=== PATIENT | male | born 1975 | race Caucasian/White ===

== ENCOUNTER 2017-01-28 13:16 | Emergency (ER) | payer OTHER ==
[~2017-01-28] VITALS: Ht 180.3 cm; Wt 102.1 kg
--- NOTE | 2017-01-28 14:15 | PHYS DOC ---
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 Patient states that after searching SL 800 tattoo needle and while trying to place it in a secure container he accidentally stuck himself in the distal left index finger. 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 Is concerned of possible HIV or hepatitis exposure. Appropriate labs will be drawn and I will provide the patient information regarding postexposure prophylaxis. He states that he was wearing gloves however after being stuck and removing the glove immediately he did see a drop of blood and he irrigated and washed the finger aggressively for an extended period of time at the corrections office before coming for evaluation. Onset: this afternoon Severity: mild Pain/Injury Location: left 2nd finger Method of Injury: other Modifying Factors: improves with other Allergies: Coded Allergies: No Known Drug Allergies (Unverified , 05/20/16) Past Medical History Medical History: other (hypothyroid) Surgical History: cholecystectomy Social History Smoker: non-smoker Alcohol: none Drugs: none Review of Systems Constitutional: denies chills, denies diaphoresis, denies fever Respiratory: denies cough, denies shortness of breath Cardiovascular: denies chest pain, denies palpitations Gastrointestinal: denies diarrhea, denies nausea, denies vomiting Musculoskeletal: denies back pain, denies joint pain, denies neck pain Skin: see HPI Physical Exam General Appearance: WD/WN, no apparent distress Neck: non-tender, supple Cardiovascular/Respiratory: normal peripheral pulses, no respiratory distress Hand: normal inspection (at the distal aspect of the left index finger there is a pin point puncture wound no other abnormal findings.) Neurologic/Tendon: normal sensation, normal motor functions, normal tendon functions, responds to pain, no evidence tendon injury Psychiatric: alert, oriented x 3 Skin: warm/dry (distal left index finger as above) Orders, Labs, Meds Labs were drawn patient will follow up with his employer for results and further testing. After thorough discussion of postexposure prophylaxis the patient does defer for now he wishes to wait until the inmate is tested before deciding to be treated. He states that his mother has hepatitis C he doesn't want that treatment and has been made aware by others of the adverse effects associated with postexposure prophylaxis which she wishes to avoid at this time. Departure Time of Disposition: 14:13 Disposition: 01 HOME, SELF-CARE Diagnosis: body fluid exposure, tetanus prophylaxis Condition: GOOD Patient Instructions: Body Fluid Exposure, VIS, Tetanus, Diphtheria, and Pertussis (Tdap) - CDC Additional Instructions: OK to return to work. Follow up with your employer regarding your results and further interventions if necessary. Return to ED with new or changing symptoms. LUCY MUÑOZ DO Jan 28, 2017 14:15
[2017-01-28] MEDS ORDERED: DIPHTH,PERTUSS(ACELL),TET TOX 0.5 ML DISP.SYRIN. VAX IM ONE (14:20)
[2017-01-28 16:02] VITALS: BP 128/76
[2017-01-29 17:09] LABS: HCV ANTIBODY <0.1 s/co ratio (0.0-0.9); HEP A IGM ABDY Negative (Negative)
== END 2017-01-28 14:26 | disposition home or self-care (01) ==
LOC: ER 13:16
DX: Z77.21 Contact with and (suspected) exposure to potentially hazardous body fluids (principal); Z23 Encounter for immunization; S69.82XA Other specified injuries of left wrist, hand and finger(s), initial encounter; E03.9 Hypothyroidism, unspecified; W46.0XXA Contact with hypodermic needle, initial encounter; Y93.89 Activity, other specified; Y99.0 Civilian activity done for income or pay; Y92.89 Other specified places as the place of occurrence of the external cause
CPT/HCPCS: 36415; 80074; 86701; 86702; 86703; 87535; 90471; 90715; 99284-25

== ENCOUNTER 2018-12-17 09:39 | Observation (INO) | payer BC ==
[~2018-12-17] VITALS: Ht 180.3 cm; Wt 103.0 kg
[2018-12-17 09:57] VITALS: BP 156/64
[2018-12-17] MEDS ORDERED: ACETAMINOPHEN 500 MG TABLET PO PRN (10:00)
[2018-12-17] MEDS ORDERED: ONDANSETRON PF 4 MG/2 ML VIAL. IV PRN (10:00)
[2018-12-17] MEDS: IV NORMAL SALINE 1,000ML 1,000 ML IV SCH ×3 (10:07→19:58)
[2018-12-17 10:45] LABS: BASO % 0 % (0-3); EOS # 0.1 x10^3/uL (0.0-0.7); EOS % 1 % (0-3); HEMATOCRIT 48.8 % (39.0-53.0); HEMOGLOBIN 16.6 g/dL (13.0-17.5); LYMPH # 0.9 x10^3/uL (1.0-4.8); LYMPH % 9 % (24-48); MEAN CORPUSCULAR HEMOGLOBIN 31 pg (25-35); MEAN CORPUSCULAR HGB CONC 34 g/dL (31-37); MEAN CORPUSCULAR VOLUME 91 fL (79-100); MONO # 0.5 x10^3/uL (0.0-1.1); MONO % 5 % (0-9); NEUT # 8.9 x10^3uL (1.8-7.7); NEUT % 85 % (31-73); PLATELET COUNT 196 x10^3/uL (140-400); RED BLOOD COUNT 5.36 x10^6/uL (4.30-5.70); RED CELL DISTRIBUTION WIDTH 13.2 % (11.5-14.5); WHITE BLOOD COUNT 10.4 x10^3/uL (4.0-11.0)
--- NOTE | 2018-12-17 10:48 | RAD ---
PQRS Compliance Statement: One or more of the following individualized dose reduction techniques were utilized for this examination: 1. Automated exposure control 2. Adjustment of the mA and/or kV according to patient size 3. Use of iterative reconstruction technique CT abdomen/pelvis without contrast 12/17/2018 9:50 AM INDICATION: Left flank pain with onset today. COMPARISON: None available TECHNIQUE: Multiple axial CT images of the abdomen and pelvis were obtained without intravenous contrast. Coronal and sagittal reformats are provided. FINDINGS: Centrally calcified pulmonary nodules in the left lower lobe measure up to 11 mm suggestive of partly calcified granulomas. Otherwise, lung bases are clear. Heart size is within normal limits. There is small hiatal hernia. Evaluation of solid abdominal viscera is limited by lack of intravenous contrast. Hypoattenuation of the hepatic parenchyma suggestive of hepatic steatosis. No suspicious hepatic lesions are identified. Gallbladder is surgically absent. Spleen, bilateral adrenal glands and pancreas are normal in appearance. The abdominal aorta is normal in course and caliber. There are no pathologically enlarged lymph nodes in the abdomen and pelvis. There is no abdominal free fluid. There is no free intraperitoneal air. There is a retroaortic left renal vein. Small and large bowel are normal in caliber. There is no evidence for bowel obstruction. There are no pericolonic inflammatory changes. A normal, nondilated appendix is visualized without adjacent inflammatory changes. There is mild left perinephric and periureteral fat stranding. Mild dilatation of left ureter without cici hydronephrosis. 4 mm calculus is identified within the dependent portion of the urinary bladder. Correlate with resolution of patient's symptoms. No additional renal calculi are identified. Urinary bladder is otherwise within normal limits given degree of distention. Prostate and seminal vesicles appear normal. No suspicious osseous normality is identified. IMPRESSION: There is a 4 mm calculus in the dependent portion of the urinary bladder which may reflect a recently passed left ureteral calculus. There is persistent mild fat stranding in the left periureteral and perinephric space. Mild distention of the left ureter without hydronephrosis. Electronically signed by: Radha Mccann MD (12/17/2018 10:45 AM) [id number]
[2018-12-17 10:56] LABS: ALBUMIN 3.8 g/dL (3.4-5.0); ALBUMIN/GLOBULIN RATIO 1.1 (1.0-1.7); CREATININE 1.4 mg/dL (0.7-1.3); GFR 55.1; POTASSIUM 4.5 mmol/L (3.5-5.1); TOTAL BILIRUBIN 0.4 mg/dL (0.2-1.0); TOTAL PROTEIN 7.2 g/dL (6.4-8.2)
[2018-12-17] MEDS ORDERED: LEVO200T5 PO (11:16)
[2018-12-17 13:08] LABS: BACTERIA,URINE 0 /HPF (0-FEW); BILIRUBIN,URINE NEG (NEG); CLARITY,URINE CLEAR; COLOR,URINE YELLOW; GLUCOSE,URINE NEG (NEG); NITRITE,URINE NEG (NEG); SQUAMOUS EPITHELIAL CELL,UR OCC /LPF; UROBILINOGEN,URINE 0.2 mg/dL (0.2 mg/dL); WBC,URINE 0 /HPF (0-4)
[2018-12-17 14:31] VITALS: BP 127/69
[2018-12-17 18:25] VITALS: BP 127/78
[2018-12-17] MEDS ORDERED: FAMO-63 PO (20:05)
[2018-12-17] MEDS: FAMOTIDINE 20 MG TABLET PO SCH (21:00)
[2018-12-17 23:35] VITALS: BP 133/79
[2018-12-18] MEDS: IV NORMAL SALINE 1,000ML 1,000 ML IV SCH ×2 (01:03→05:45)
[2018-12-18] MEDS ORDERED: LEVOTHYROXINE 100 MCG TABLET PO SCH (06:00)
[2018-12-18 06:09] VITALS: BP 131/79
[2018-12-18 06:34] LABS: BASO % 0 % (0-3); EOS # 0.3 x10^3/uL (0.0-0.7); EOS % 5 % (0-3); HEMATOCRIT 45.3 % (39.0-53.0); HEMOGLOBIN 15.3 g/dL (13.0-17.5); LYMPH # 1.9 x10^3/uL (1.0-4.8); LYMPH % 30 % (24-48); MEAN CORPUSCULAR HEMOGLOBIN 31 pg (25-35); MEAN CORPUSCULAR HGB CONC 34 g/dL (31-37); MEAN CORPUSCULAR VOLUME 92 fL (79-100); MONO # 0.6 x10^3/uL (0.0-1.1); MONO % 9 % (0-9); NEUT # 3.6 x10^3uL (1.8-7.7); NEUT % 56 % (31-73); PLATELET COUNT 185 x10^3/uL (140-400); RED BLOOD COUNT 4.93 x10^6/uL (4.30-5.70); RED CELL DISTRIBUTION WIDTH 13.2 % (11.5-14.5); WHITE BLOOD COUNT 6.5 x10^3/uL (4.0-11.0)
[2018-12-18 06:44] LABS: CALCIUM 8.4 mg/dL (8.5-10.1); CREATININE 1.2 mg/dL (0.7-1.3); GFR 65.8; POTASSIUM 4.3 mmol/L (3.5-5.1)
[2018-12-18] MEDS: FAMOTIDINE 20 MG TABLET PO SCH (08:50)
[2018-12-18] MEDS ORDERED: LEVO500T59 PO (08:52)
== END 2018-12-18 09:40 | disposition home or self-care (01) ==
LOC: INTOOBSV 09:41 → 1 SOUTH 09:41 → EEVIPCON 09:41
PROVIDERS: ADMIT Family Medicine; ATTEND Family Medicine
DX: R10.12 Left upper quadrant pain (principal); E03.9 Hypothyroidism, unspecified; R10.32 Left lower quadrant pain
CPT/HCPCS: 36415; 74176; 80048; 80053; 81001; 85025; 87086; 96365; 96375; 96376; G0378; G0379; J0696; J2405; J3010; J7030

== ENCOUNTER 2019-11-14 18:40 | Emergency (ER) | payer BC ==
[~2019-11-14] VITALS: Ht 180.3 cm; Wt 108.6 kg
[~2019-11-14 18:40] MED LIST: FAMO-63 PO; LEVO200T5 PO; LEVO500T59 PO
[2019-11-14 18:51] VITALS: BP 160/92
[2019-11-14] MEDS ORDERED: DIPH,PERTUSS(ACELL),TET VAC/PF 0.5 ML SYRINGE. VAX IM ONE ×2 (18:58→19:30)
[2019-11-14] MEDS ORDERED: LIDOCAINE 1% Multi-Dose 20 ML VIAL. INJ ONE (19:00)
[2019-11-14] MEDS ORDERED: AMOX1TAB61 PO (19:37)
--- NOTE | 2019-11-14 19:37 | RAD ---
Exam: Left hand 3 views INDICATION: Laceration TECHNIQUE: Frontal, lateral and oblique views of the left hand Comparisons: None FINDINGS: Overlying bandage material limits the evaluation at the distal fourth digit. Bone mineralization is normal. No acute fractures identified. Soft tissues are unremarkable. Joint spaces are well-maintained. IMPRESSION: No acute fracture or retained radiopaque foreign body identified. Electronically signed by: Sandra Bustillo MD (11/14/2019 7:34 PM) [id number]
--- NOTE | 2019-11-14 20:05 | PHYS DOC ---
Past History Past Medical History: Hypothyroid Past Surgical History: Cholecystectomy, Other Additional Past Surgical Histo: SKULL SX Alcohol Use: Occasionally Drug Use: None Adult General Chief Complaint Chief Complaint: FINGER INJURY HPI HPI Patient is a 44 year old male who presents with injury to the left hand. Patient was carrying some kind of saw and tripped cutting his fourth and fifth fingers. He denies any other injuries. He was able to control the bleeding while driving here. He denies any change of feeling in his fingers. Is got full range of motion of his hand. Unknown last tetanus Review of Systems Review of Systems General: Denies fever, chills, sweats, fatigue Eyes: Denies drainage, blurred vision, eye redness HENT: Denies rhinorrhea, sore throat, earache Respiratory: Denies cough, shortness of breath, wheezing Cardiac: Denies edema, palpitations, chest pain GI: Denies abdominal pain, Nausea, vomiting MSK: Denies back pain, neck pain Skin: Denies rash, jaundice Neuro: Denies headache, dizziness Psychiatric: Denies SI/HI Current Medications Current Medications Current Medications Medications (Trade) Dose Ordered Sig/Marky Start Time Stop Time Status Last Admin Dose Admin Diphtheria/ Pertussis/Tetanus Vacc (ADACEL TDap SYRINGE) 0.5 ml ONCE ONCE 11/14/19 19:30 11/14/19 19:31 DC 11/14/19 19:27 0.5 ML Lidocaine HCl 20 ml 1X ONCE 11/14/19 19:00 11/14/19 19:01 DC 11/14/19 19:18 20 ML Allergies Allergies Allergies Coded Allergies Type Severity Reaction Last Updated Verified morphine Allergy Severe Anaphylaxis 12/17/18 Yes Sulfa (Sulfonamide Antibiotics) Allergy Unknown 12/17/18 Yes Physical Exam Physical Exam General: Awake, alert, NAD. Well Nourished, well hydrated. Cooperative HEENT: Atraumatic, EOMI, PERRL, airway patent, moist oral mucosa Neck: Supple, trachea midline Respiratory: CTA bilaterally, normal effort, no wheezing/crackles CV: RRR, no murmur, cap refill <2 GI: Soft, nondistended, nontender, no masses MSK: full range of motion, normal sensation Skin: Warm, dry. L 4th finger: fingertip laceration through the finger including lateral nailbed with minimal bleeding. L 5th finger: laceration to tip of finger with multiple skin flaps including lateral nailbed and moderate bleeding Neuro: A&O x3, speech NL, sensory and motor grossly intact, no focal deficits Psych: Normal affect, normal mood, not suicidal or homicidal Current Patient Data Vital Signs Vital Signs Date Time Temp Pulse Resp B/P (MAP) Pulse Ox O2 Delivery O2 Flow Rate FiO2 11/14/19 18:51 98.2 62 18 160/92 (114) 95 Room Air EKG EKG [] Radiology/Procedures Radiology/Procedures [] Course & Med Decision Making Course & Med Decision Making Pertinent Labs and Imaging studies reviewed. (See chart for details) Patient is a 44 year old male who presents with lacerations from saw. Fingers were cleaned with copious amount of normal saline. Xray negative for fracture. Wounds were repaired with difficulty. Fourth finger wound was repaired with sutures and bleeding was controlled. Fifth digit wound is complicated and sutures were place where able. Patient will be placed on antibiotics and will follow up with orthopedics. Patient's test results and vitals while in the ED were fully reviewed and discussed with the patient. Patient is stable and at this time does not need admission to the hospital. We have discussed strict return precautions and the importance of following up with their Primary Care Physician. Patient stated understanding and was given an opportunity to ask any questions. Patient is in agreement with plan. Dragon Disclaimer Dragon Disclaimer This electronic medical record was generated, in whole or in part, using a voice recognition dictation system. Departure Departure: Impression: Primary Impression: Laceration of finger nail bed Disposition: HOME/RESIDENCE PRIOR TO ADM Condition: STABLE Referrals: ELLA GALLEGO MD (PCP) JOSE MARTIN CRUZ II, MD Patient Instructions: Fingertip Laceration, Stitches, [place] or Skin Adhesive Strips, [id number] Scripts Amoxicillin/Potassium Clav (AUGMENTIN 875-125 TABLET) 1 Each Tablet 1 TAB PO BID for finger laceration for 7 Days, #14 TAB 0 Refills Prov: JAIME OLIVEIRA MD 11/14/19 Justification of Admission: Justification of Admission: Justification of Admission Dx: No JAIME OLIVEIRA MD Nov 14, 2019 20:05
== END 2019-11-14 21:30 | disposition home or self-care (01) ==
LOC: ER 18:40
DX: S61.315A Laceration without foreign body of left ring finger with damage to nail, initial encounter (principal); S61.317A Laceration without foreign body of left little finger with damage to nail, initial encounter; W26.8XXA Contact with other sharp object(s), not elsewhere classified, initial encounter; Y93.89 Activity, other specified; Y92.89 Other specified places as the place of occurrence of the external cause; Y99.8 Other external cause status
CPT/HCPCS: 11760; 73130; 90471; 90715; 99283; 99285

== ENCOUNTER 2019-11-22 20:48 | Emergency (ER) | payer BC ==
[~2019-11-22] VITALS: Ht 180.3 cm; Wt 95.1 kg
[~2019-11-22 20:48] MED LIST changes: +AMOX1TAB61 PO
--- NOTE | 2019-11-22 20:52 | PHYS DOC ---
Past History Past Medical History: Hypothyroid Past Surgical History: Cholecystectomy, Other Additional Past Surgical Histo: SKULL SX Alcohol Use: Occasionally Drug Use: None General Adult HPI: HPI: "..This fernanda started yesterday.. no reason.. some chest tightness... skipping heart beats..more this afternoon....".." I have been having these episodes for the past 3 months. But tonight it lasted about 3 hours so I thought I did come in and get checked out..." Patient is a 44 year old male who presents with above hx and complaints palpitations and chest tightness. Patient denies any previous history of cardiac disorders prior to 3 months ago. Symptoms have been off and on the past three months. Did get cardiac US this week ordered by Dr. Gallego. No result currently available. Pt. came in tonight because tighness. and palpation has lasted 3 hrs. . Patient has not indulged in heavy alcohol or caffeine usage. No change in baseline home meds. No history of cardiac disease. No history of early onset of cardiac disease in mother or father. Patient normally follows with Dr. Gallego..Patient does not smoke. Patient does not use illicit drugs. No recent travel. No history of trauma. No history of specific ill contacts. No history immunosuppression. Discomfort is described as a tightness in his center of his chest. No specific radiation at this time. Review of Systems: Review of Systems: Constitutional: Denies fever or chills Eyes: Denies change in visual acuity HENT: Denies nasal congestion or sore throat Respiratory: Denies cough or shortness of breath Cardiovascular: Complailnts of chest pain and palpitations GI: Denies abdominal pain, nausea, vomiting, bloody stools or diarrhea : Denies dysuria Musculoskeletal: Denies back pain or joint pain Integument: Denies rash Neurologic: Denies headache, focal weakness or sensory changes Endocrine: Denies polyuria or polydipsia Lymphatic: Denies swollen glands Psychiatric: Denies depression or anxiety Heart Score: HEART Score for Chest Pain: HEART Score for Chest Pain Response (Comments) Value History Slighlty/Non-Suspicious 0 ECG Nonspecific Repolarizatio 1 Age >45 - < 65 1 Risk Factors 1 or 2 Risk Factors 1 Troponin < Normal Limit 0 Total 3 Risk Factors: Risk Factors: DM, Current or recent (<one month) smoker, HTN, HLP, family history of CAD, obesity. Risk Scores: Score 0 - 3: 2.5% MACE over next 6 weeks - Discharge Home Score 4 - 6: 20.3% MACE over next 6 weeks - Admit for Clinical Observation Score 7 - 10: 72.7% MACE over next 6 weeks - Early Invasive Strategies Family History: Family History: Noncontributory Current Medications: Current Meds: See nursing for home meds Allergies: Allergies: Allergies Coded Allergies Type Severity Reaction Last Updated Verified morphine Allergy Severe Anaphylaxis 12/17/18 Yes Sulfa (Sulfonamide Antibiotics) Allergy Unknown 12/17/18 Yes Physical Exam: PE: Constitutional: Well developed, well nourished, mild distress, non-toxic appearance. [] HENT: Normocephalic, atraumatic, bilateral external ears normal, oropharynx moist, no oral exudates, nose normal. [] Eyes: PERRLA, EOMI, conjunctiva normal, no discharge. Glasses Neck: Normal range of motion, no tenderness, supple, no stridor. [] Cardiovascular:Heart rate regular rhythm, no murmur [] Lungs & Thorax: Bilateral breath sounds equal apex on auscultation [] Abdomen: Bowel sounds normal, soft, no tenderness, no masses, no pulsatile masses. [] Skin: Warm, mild diaphoresis, no erythema, no rash. [] Tattoos Back: No tenderness, no CVA tenderness. [] Extremities: No tenderness, no cyanosis, no clubbing, ROM intact, no edema. [] No cording appreciated Neurologic: Alert and oriented X 3, normal motor function, normal sensory function, no focal deficits noted. [] Psychologic: Affect anxious, judgement normal, mood normal. [] EKG: EKG: My interpretation EKG shows a sinus rhythm at 79 bpm. There is some variation due to respiratory effort. There is some baseline artifact or interference which appears to be electrical. But no findings of acute STEMI with contralateral changes. [] Time was 2104 hrs. My interpretation of second EKG shows a sinus rhythm at 65 bpm. No findings of acute STEMI with contralateral changes. Time was 2247 hrs. Radiology/Procedures: Radiology/Procedures: [][address] [address] IMAGING REPORT Signed PATIENT: ROSY SULTANA ACCOUNT: [id number] : 1975 LOCATION: ER AGE: 44 SEX: M EXAM STATUS: REG ER ORD. PHYSICIAN: YESENIA PURVIS MD REASON: palpitation PROCEDURE: CHEST PA & LATERAL EXAM: CHEST PA LATERAL INDICATION: Reason: palpitation / Spl. Instructions: / History: . TECHNIQUE: PA and lateral views COMPARISON: None FINDINGS: The heart size is normal. The great vessels appear unremarkable. There is no hilar or mediastinal mass. The lungs are clear. There is no pleural effusion or pneumothorax. There are no significant osseous abnormalities. IMPRESSION: No active cardiopulmonary disease. Electronically signed by: Donnie Milian MD (11/22/2019 9:54 PM) [facility] [place] DICTATED AND SIGNED BY: DONNIE MILIAN MD DATE: 11/22/192153 CC: ELLA GALLEGO MD; YESENIA PURVIS MD ~ Course & Med Decision Making: Course & Med Decision Making Pertinent Labs and Imaging studies reviewed. (See chart for details) Pt. at 2242 advised he wants to be discharged. States his symptoms are over.. Does not want admission or wait for further testing. Pt. exhibits UCAR capacity. Risk and Benefits discussed. Pt. does agree to at least one more EKG. Pt. encouraged to keep follow up. Take a daily 1/2 aspirin. Will give one dose of Lovenox. Advised pt. return at anytime to complete his work up or cardiac observation. Begged pt. to reconsider and at least stay until we could complete a 4 hr observation and repeat trop. test. Pt. refused. 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 Gallego Impression: 1. Chest Pain 2. Hypertension 3. Complaints of palpitations [] Dragon Disclaimer: Dragon Disclaimer: This electronic medical record was generated, in whole or in part, using a voice recognition dictation system. Departure Departure: Disposition: HOME/RESIDENCE PRIOR TO ADM Condition: STABLE Referrals: ELLA GALLEGO MD (PCP) Justification of Admission: Justification of Admission: Justification of Admission Dx: N/A Dragon Disclaimer This chart was dictated in whole or in part using Voice Recognition software in a busy, high-work load, and often noisy Emergency Department environment. It may contain unintended and wholly unrecognized errors or omissions. Dragon Disclaimer This chart was dictated in whole or in part using Voice Recognition software in a busy, high-work load, and often noisy Emergency Department environment. It may contain unintended and wholly unrecognized errors or omissions. YESENIA PURVIS MD Nov 22, 2019 20:52
[2019-11-22] MEDS ORDERED: IV RINGERS SOLUTION,LACTATED 1,000 ML IV SCH (21:00)
[2019-11-22] MEDS ORDERED: ASPIRIN CHEWABLE 81 MG TABLET. PO ONE (21:30)
[2019-11-22 21:44] LABS: BASO # 0.1 x10^3/uL (0.0-0.2); BASO % 1 % (0-3); EOS # 0.4 x10^3/uL (0.0-0.7); EOS % 4 % (0-3); HEMATOCRIT 49.1 % (39.0-53.0); HEMOGLOBIN 16.5 g/dL (13.0-17.5); LYMPH # 2.6 x10^3/uL (1.0-4.8); LYMPH % 31 % (24-48); MEAN CORPUSCULAR HEMOGLOBIN 31 pg (25-35); MEAN CORPUSCULAR HGB CONC 34 g/dL (31-37); MEAN CORPUSCULAR VOLUME 91 fL (79-100); MONO # 0.8 x10^3/uL (0.0-1.1); MONO % 10 % (0-9); NEUT # 4.6 x10^3uL (1.8-7.7); NEUT % 54 % (31-73); PLATELET COUNT 197 x10^3/uL (140-400); RED BLOOD COUNT 5.38 x10^6/uL (4.30-5.70); RED CELL DISTRIBUTION WIDTH 12.8 % (11.5-14.5); WHITE BLOOD COUNT 8.4 x10^3/uL (4.0-11.0)
[2019-11-22 21:46] LABS: BARBITURATES NEG (NEG); BENZODIAZEPINES NEG (NEG); CANNABINOIDS NEG (NEG); COCAINE NEG (NEG); METHADONE NEG (NEG); OPIATES NEG (NEG); PHENCYCLIDINE NEG (NEG)
[2019-11-22 21:49] LABS: AMPHETAMINE/METHAMPHETAMINE NEG (NEG)
[2019-11-22 21:52] LABS: CALCIUM 8.7 mg/dL (8.5-10.1); CREATININE 1.6 mg/dL (0.7-1.3); POTASSIUM 3.8 mmol/L (3.5-5.1)
--- NOTE | 2019-11-22 21:57 | RAD ---
EXAM: CHEST PA LATERAL INDICATION: Reason: palpitation / Spl. Instructions: / History: . TECHNIQUE: PA and lateral views COMPARISON: None FINDINGS: The heart size is normal. The great vessels appear unremarkable. There is no hilar or mediastinal mass. The lungs are clear. There is no pleural effusion or pneumothorax. There are no significant osseous abnormalities. IMPRESSION: No active cardiopulmonary disease. Electronically signed by: Eriberto Milian MD (11/22/2019 9:54 PM) [facility] [place]
[2019-11-22 22:01] LABS: ALBUMIN 3.7 g/dL (3.4-5.0); DIRECT BILIRUBIN 0.1 mg/dL (0.0-0.2); MAGNESIUM 2.1 mg/dL (1.8-2.4); TOTAL BILIRUBIN 0.4 mg/dL (0.2-1.0); TOTAL PROTEIN 6.7 g/dL (6.4-8.2)
[2019-11-22 22:07] LABS: BACTERIA,URINE 0 /HPF (0-FEW); BILIRUBIN,URINE NEG (NEG); CLARITY,URINE CLEAR; COLOR,URINE YELLOW; GLUCOSE,URINE NEG (NEG); NITRITE,URINE NEG (NEG); RBC,URINE 0 /HPF (0-2); UROBILINOGEN,URINE 0.2 mg/dL (0.2 mg/dL); WBC,URINE OCC /HPF (0-4)
--- NOTE | 2019-11-22 22:55 | EKG ---
[address] [address] Test Date: 2019-11-22 Test Time: 22:47:45 Pat Name: ROSY SULTANA Department: Room: Gender: M Log Haul Operator: : 1975 Requested By: YESENIA PURVIS Order Number: [id number] Reading MD: Measurements Intervals [place] Rate: 65 P: 40 NH: 176 QRS: 35 QRSD: 88 T: 14 QT: 360 QTc: 375 Interpretive Statements SINUS RHYTHM OTHERWISE NORMAL ECG RI6.02 No previous ECG available for comparison
--- NOTE | 2019-11-22 22:55 | EKG ---
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
[2019-11-22 23:00] VITALS: BP 162/72
[2019-11-22] MEDS ORDERED: ENOXAPARIN ** NOTE DOSE ** SYRINGE SQ ONE (23:00)
[2019-11-23 22:15] LABS: THYROID STIM HORMONE (TSH) 3.356 uIU/mL (0.358-3.740)
== END 2019-11-22 23:00 | disposition home or self-care (01) ==
LOC: ER 20:48
DX: R07.89 Other chest pain (principal); I10 Essential (primary) hypertension; R00.2 Palpitations; E03.9 Hypothyroidism, unspecified; Z88.5 Allergy status to narcotic agent; Z88.2 Allergy status to sulfonamides
CPT/HCPCS: 36415; 71046; 80048; 80061; 80076; 80307; 81001; 82550; 83690; 83735; 83880; 84443; 84484; 85025; 85379; 85610; 85730; 93005; 96360; 96361; 96372; 99285; J1650; J7120

== ENCOUNTER 2019-12-21 13:14 | Observation (INO) | payer BC ==
[~2019-12-21] VITALS: Ht 180.3 cm; Wt 104.9 kg
--- NOTE | 2019-12-21 13:44 | EKG ---
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
--- NOTE | 2019-12-21 13:59 | PHYS DOC ---
Past History Past Medical History: Hypothyroid Additional Past Medical Histor: low testosterone Past Surgical History: Cholecystectomy Additional Past Surgical Histo: SKULL SX Alcohol Use: Occasionally Drug Use: None General Adult EDM: Chief Complaint: RAPID HEART RATE HPI: HPI: Patient is a 43-year-old male who presented to ER today for evaluation rapid heart rate, having trouble breathing with exertion. Patient denies any chest pain. Patient says symptoms started last night and went away after 1 hour. Patient says the symptoms started again this morning at 7 AM, symptom with the palpitation and irregular heartbeat will come and go. Patient has history of hypothyroidism, he is on levothyroxine. Patient denies any history of heart problem. Patient denies using illicit drug . Patient denies any cough, no fever, no recent travel or operation. Patient had this problem off and on for 3 months now. Patient was evaluated here about 30 days ago for the same problem, however when he was in the ER he had normal sinus rhythm and work-up in ER was normal. Patient did not want to stay in the hospital so he was discharged home. Patient denies any history of recent travel or operation. Patient did not follow-up with cardiology. Review of Systems: Review of Systems: Constitutional: Denies fever or chills Eyes: Denies change in visual acuity HENT: Denies nasal congestion or sore throat Respiratory: Denies cough, positive for shortness of air. Cardiovascular: Denies chest pain or edema . Positive for heart palpitation GI: Denies abdominal pain, nausea, vomiting, bloody stools or diarrhea : Denies dysuria Musculoskeletal: Denies back pain or joint pain Integument: Denies rash Neurologic: Denies headache, focal weakness or sensory changes Endocrine: Denies polyuria or polydipsia Lymphatic: Denies swollen glands Psychiatric: Denies depression or anxiety Heart Score: Risk Factors: Risk Factors: DM, Current or recent (<one month) smoker, HTN, HLP, family history of CAD, obesity. Risk Scores: Score 0 - 3: 2.5% MACE over next 6 weeks - Discharge Home Score 4 - 6: 20.3% MACE over next 6 weeks - Admit for Clinical Observation Score 7 - 10: 72.7% MACE over next 6 weeks - Early Invasive Strategies Allergies: Allergies: Allergies Coded Allergies Type Severity Reaction Last Updated Verified morphine Allergy Severe Anaphylaxis 12/17/18 Yes Sulfa (Sulfonamide Antibiotics) Allergy Intermediate 11/22/19 Yes Physical Exam: PE: Constitutional: Well developed, well nourished, no acute distress, non-toxic appearance. [] HENT: Normocephalic, atraumatic, bilateral external ears normal, oropharynx moist, no oral exudates, nose normal. [] Eyes: PERRLA, EOMI, conjunctiva normal, no discharge. [] Neck: Normal range of motion, no tenderness, supple, no stridor. [] Cardiovascular:Heart rate regular rhythm, no murmur [] Lungs & Thorax: Bilateral breath sounds clear to auscultation [] Abdomen: Bowel sounds normal, soft, no tenderness, no masses, no pulsatile masses. [] Skin: Warm, dry, no erythema, no rash. [] Back: No tenderness, no CVA tenderness. [] Extremities: No tenderness, no cyanosis, no clubbing, ROM intact, no edema. [] Neurologic: Alert and oriented X 3, normal motor function, normal sensory function, no focal deficits noted. [] Psychologic: Affect normal, judgement normal, mood normal. [] Current Patient Data: Labs: Laboratory Tests Test 12/21/19 13:25 12/21/19 13:35 Urine Collection Type Unknown Urine Color Straw Urine Clarity Clear Urine pH 6.5 Urine Specific [place] <=1.005 Urine Protein Neg Urine Glucose (UA) Neg mg/dL Urine Ketones (Stick) Neg mg/dL Urine Blood Neg Urine Nitrite Neg Urine Bilirubin Neg Urine Urobilinogen Dipstick 0.2 mg/dL Urine Leukocyte Esterase Neg Urine RBC 0 /HPF Urine WBC 0 /HPF Urine Bacteria 0 /HPF White Blood Count 6.2 x10^3/uL Red Blood Count 5.49 x10^6/uL Hemoglobin 17.1 g/dL Hematocrit 50.1 % Mean Corpuscular Volume 91 fL Mean Corpuscular Hemoglobin 31 pg Mean Corpuscular Hemoglobin Concent 34 g/dL Red Cell Distribution Width 13.1 % Platelet Count 194 x10^3/uL Neutrophils (%) (Auto) 63 % Lymphocytes (%) (Auto) 25 % Monocytes (%) (Auto) 8 % Eosinophils (%) (Auto) 3 % Basophils (%) (Auto) 1 % Neutrophils # (Auto) 3.9 x10^3uL Lymphocytes # (Auto) 1.5 x10^3/uL Monocytes # (Auto) 0.5 x10^3/uL Eosinophils # (Auto) 0.2 x10^3/uL Basophils # (Auto) 0.0 x10^3/uL Prothrombin Time 11.6 SEC Prothromb Time International Ratio 1.1 Activated Partial Thromboplast Time 25 SEC Sodium Level 139 mmol/L Potassium Level 3.7 mmol/L Chloride Level 104 mmol/L Carbon Dioxide Level 26 mmol/L Anion Gap 9 Blood Urea Nitrogen 13 mg/dL Creatinine 1.2 mg/dL Estimated GFR (Cockcroft-Gault) 65.5 BUN/Creatinine Ratio 11 Glucose Level 154 mg/dL Calcium Level 8.6 mg/dL Magnesium Level 2.3 mg/dL Total Bilirubin 0.7 mg/dL Aspartate Amino Transf (AST/SGOT) 39 U/L Alanine Aminotransferase (ALT/SGPT) 56 U/L Alkaline Phosphatase 64 U/L Troponin I Quantitative < 0.017 ng/mL XL-Rki-H-Type Natriuretic Peptide 15 pg/mL Total Protein 7.2 g/dL Albumin 3.9 g/dL Albumin/Globulin Ratio 1.2 Current Medications Medications (Trade) Dose Ordered Sig/Marky Route PRN Reason Start Time Stop Time Status Last Admin Dose Admin Ondansetron HCl (Zofran) 4 mg PRN Q4HRS PRN IVP NAUSEA/VOMITING 12/21/19 16:15 12/22/19 16:14 UNV Metoprolol Tartrate (Lopressor) 25 mg BID PO 12/21/19 21:00 UNV Aspirin (Aspirin Chewable) 324 mg 1X ONCE PO 12/21/19 16:15 12/21/19 16:16 UNV Vital Signs: Vital Signs Date Time Temp Pulse Resp B/P (MAP) Pulse Ox O2 Delivery O2 Flow Rate FiO2 12/21/19 13:27 98.3 148 18 137/77 (97) 96 Room Air EKG: EKG: EKG was done at 1320, was read by this physician at the same time, heart rate 149 beats per minute, atrial fibrillation with rapid ventricular response. No ST segment elevation. Normal QRS complex Radiology/Procedures: Radiology/Procedures: [][address] [address] IMAGING REPORT Signed PATIENT: ROSY SULTANA ACCOUNT: [id number] : 1975 LOCATION: ER AGE: 44 SEX: M EXAM STATUS: REG ER ORD. PHYSICIAN: ELLA GONZALEZ DO REASON: soa, heart palpitation PROCEDURE: PORTABLE CHEST 1V EXAM: CHEST 1 VIEW History: Shortness of breath, heart palpitations COMPARISON: 11/22/2019 TECHNIQUE: Single portable radiograph of the chest FINDINGS: The cardiac silhouette is unremarkable. The lungs are clear bilaterally. The costophrenic sulci are clear and well demarcated. IMPRESSION: No radiographic evidence of an acute cardiopulmonary process. Electronically signed by: Fco Sung MD (12/21/2019 2:44 PM) [id number] DICTATED AND SIGNED BY: FCO SUNG MD DATE: 12/21/19 1444 CC: ELLA GALLEGO MD; ELLA GONZALEZ DO ~ Course & Med Decision Making: Course & Med Decision Making Pertinent Labs and Imaging studies reviewed. (See chart for details) Patient is a 44-year-old male who was evaluated in the ER due to atrial fibrillation with RVR. Patient converted to normal sinus rhythm when an IV was placed by RN. Patient has been staying normal sinus rhythm since. He required no medication to convert his A. fib with RVR. Discussed with Karla cardiology EXPLOSION WELDER who recommended with patient on 25 mg of metoprolol tartrate p.o. twice daily, and aspirin daily. Admit patient for observation. Discussed with Dr. Gallego who agrees to admit the patient Dragon Disclaimer: Mireya Disclaimer: This electronic medical record was generated, in whole or in part, using a voice recognition dictation system. Departure Departure: Impression: Primary Impression: Transient atrial fibrillation Additional Impression: Atrial fibrillation with RVR Disposition: ADMITTED INPATIENT Admitting Physician: Ella Gallego Condition: IMPROVED Referrals: ELLA GALLEGO MD (PCP) Justification of Admission: Justification of Admission: Justification of Admission Dx: N/A ELLA GONZALEZ DO Dec 21, 2019 13:59
[2019-12-21 14:16] LABS: BASO % 1 % (0-3); EOS # 0.2 x10^3/uL (0.0-0.7); EOS % 3 % (0-3); HEMATOCRIT 50.1 % (39.0-53.0); HEMOGLOBIN 17.1 g/dL (13.0-17.5); LYMPH # 1.5 x10^3/uL (1.0-4.8); LYMPH % 25 % (24-48); MEAN CORPUSCULAR HEMOGLOBIN 31 pg (25-35); MEAN CORPUSCULAR HGB CONC 34 g/dL (31-37); MEAN CORPUSCULAR VOLUME 91 fL (79-100); MONO # 0.5 x10^3/uL (0.0-1.1); MONO % 8 % (0-9); NEUT # 3.9 x10^3uL (1.8-7.7); NEUT % 63 % (31-73); PLATELET COUNT 194 x10^3/uL (140-400); RED BLOOD COUNT 5.49 x10^6/uL (4.30-5.70); RED CELL DISTRIBUTION WIDTH 13.1 % (11.5-14.5); WHITE BLOOD COUNT 6.2 x10^3/uL (4.0-11.0)
[2019-12-21 14:17] LABS: BILIRUBIN,URINE NEG (NEG); CLARITY,URINE CLEAR; COLOR,URINE STRAW; GLUCOSE,URINE NEG (NEG)
[2019-12-21 14:18] LABS: BACTERIA,URINE 0 /HPF (0-FEW); NITRITE,URINE NEG (NEG); RBC,URINE 0 /HPF (0-2); UROBILINOGEN,URINE 0.2 mg/dL (0.2 mg/dL); WBC,URINE 0 /HPF (0-4)
[2019-12-21 14:19] LABS: CALCIUM 8.6 mg/dL (8.5-10.1); CREATININE 1.2 mg/dL (0.7-1.3); GFR 65.5; POTASSIUM 3.7 mmol/L (3.5-5.1)
[2019-12-21 14:31] LABS: ALBUMIN 3.9 g/dL (3.4-5.0); ALBUMIN/GLOBULIN RATIO 1.2 (1.0-1.7); MAGNESIUM 2.3 mg/dL (1.8-2.4); TOTAL BILIRUBIN 0.7 mg/dL (0.2-1.0); TOTAL PROTEIN 7.2 g/dL (6.4-8.2)
--- NOTE | 2019-12-21 14:48 | RAD ---
EXAM: CHEST 1 VIEW History: Shortness of breath, heart palpitations COMPARISON: 11/22/2019 TECHNIQUE: Single portable radiograph of the chest FINDINGS: The cardiac silhouette is unremarkable. The lungs are clear bilaterally. The costophrenic sulci are clear and well demarcated. IMPRESSION: No radiographic evidence of an acute cardiopulmonary process. Electronically signed by: Fco Heard MD (12/21/2019 2:44 PM) [id number]
[2019-12-21] MEDS ORDERED: ONDANSETRON PF 4 MG/2 ML VIAL. IVP PRN ×2 (16:15→17:45)
[2019-12-21] MEDS ORDERED: ASPIRIN CHEWABLE 81 MG TABLET. PO ONE (16:15)
[2019-12-21] MEDS ORDERED: LEVO175T5 PO (16:37)
[2019-12-21] MEDS ORDERED: ASPI325T8 PO (16:40)
[2019-12-21] MEDS ORDERED: TEST200V3 IM (16:41)
[2019-12-21] MEDS: METOPROLOL TART IMMED RELEASE 25 MG TABLET PO SCH (17:03)
[2019-12-21] MEDS ORDERED: ACETAMINOPHEN 325 MG TABLET PO PRN (17:45)
[2019-12-21 19:15] VITALS: BP 133/79
[2019-12-22 06:45] VITALS: BP 114/73
--- NOTE | 2019-12-22 08:10 | PDOC2 ---
CARDIAC CONSULT DATE OF CONSULT DOS: DATE: 12/22/19 TIME: 07:59 REASON FOR CONSULT Reason for Consult AFIB with RVR REFERRING PHYSICIAN Referring Physician Dr. Peterson SOURCE Source: Chart review, Patient HPI History of Present Illness This is a 44 yo male who presented secondary to palpitations. Was noted in AFIB with RVR upon arrival. Convert to SR in ED and has been maintaining overnight. Metoprolol added for rate control. Patient reports intermittent palpitations for the last couple of months. He presented to the ED for evaluation recently, but converted back to SR prior to arrival. Was referred for outpatient echo, which showed preserved LV systolic function. Yesterday, patient was sitting at work at his desk and began having palpitations again. Went to the ED and was noted in AFIB with RVR. He converted back to SR spontaneously. Denies any chest pain, dizziness, diaphoresis, or nausea/vomiting. Works out regularly and denies any chest pain with this. No prior h/o CAD and family h/o heart disease. PAST MEDICAL HISTORY Cardiovascular: hyperipidemia Endocrine: Hypothyroidism PAST SURGICAL HISTORY Past Surgical History: Cholecystectomy FAMILY HISTORY Family History: Hypertension SOCIAL HISTORY Smoke: No ALCOHOL: social Drugs: None Lives: with Family CURRENT MEDICATIONS Current Medications Current Medications Ondansetron HCl (Zofran) 4 mg PRN Q4HRS PRN IVP NAUSEA/VOMITING; Start 12/21/19 at 16:15; Stop 12/22/19 at 16:14; Status Cancel Metoprolol Tartrate (Lopressor) 25 mg BID PO Last administered on 12/21/19at 17:03; Start 12/21/19 at 17:00 Aspirin (Aspirin Chewable) 324 mg 1X ONCE PO Last administered on 12/21/19at 17:00; Start 12/21/19 at 16:15; Stop 12/21/19 at 16:54; Status DC Acetaminophen (Tylenol) 650 mg PRN Q6HRS PRN PO Headaches, Temp > 101.5F; Start 12/21/19 at 17:45 Ondansetron HCl (Zofran) 4 mg PRN Q8HRS PRN IVP NAUSEA/VOMITING; Start 12/21/19 at 17:45 Active Scripts Active Reported Testosterone Cypionate 200 Mg/1 Ml Vial 1 Ml IM Q2WKS Aspirin 325 Mg Tablet 1 Tab PO DAILY Levothyroxine Sodium 175 Mcg Tablet 1 Tab PO DAILY ALLERGIES Allergies: Coded Allergies: morphine (Verified Allergy, Severe, Anaphylaxis, 12/21/19) Sulfa (Sulfonamide Antibiotics) (Verified Allergy, Intermediate, 12/21/19) ROS Review of Systems 14 point ROS conducted with pertinent positives noted above in HPI PHYSICAL EXAM General: Alert, Oriented X3, Cooperative, No acute distress HEENT: Atraumatic, Mucous membr. moist/pink Lungs: Clear to auscultation Heart: Regular rate Abdomen: Soft, No tenderness Extremities: No edema, Normal pulses Skin: No breakdown Neuro: Normal speech, Sensation intact Psych/Mental Status: Mental status NL, Mood NL MUSCULOSKELETAL: No joint tenderness VITALS Vital Signs Vital Signs Date Time Temp Pulse Resp B/P (MAP) Pulse Ox O2 Delivery O2 Flow Rate FiO2 12/22/19 06:45 97.5 64 16 114/73 (87) 99 Room Air LABS LABS Laboratory Tests Test 12/21/19 13:25 12/21/19 13:35 12/21/19 19:50 12/22/19 05:45 Urine Collection Type Unknown Urine Color Straw Urine Clarity Clear Urine pH 6.5 Urine Specific [place] <=1.005 Urine Protein Neg (NEG-TRACE) Urine Glucose (UA) Neg mg/dL (NEG) Urine Ketones (Stick) Neg mg/dL (NEG) Urine Blood Neg (NEG) Urine Nitrite Neg (NEG) Urine Bilirubin Neg (NEG) Urine Urobilinogen Dipstick 0.2 mg/dL (0.2 mg/dL) Urine Leukocyte Esterase Neg (NEG) Urine RBC 0 /HPF (0-2) Urine WBC 0 /HPF (0-4) Urine Bacteria 0 /HPF (0-FEW) White Blood Count 6.2 x10^3/uL (4.0-11.0) Red Blood Count 5.49 x10^6/uL (4.30-5.70) Hemoglobin 17.1 g/dL (13.0-17.5) Hematocrit 50.1 % (39.0-53.0) Mean Corpuscular Volume 91 fL (79-100) Mean Corpuscular Hemoglobin 31 pg (25-35) Mean Corpuscular Hemoglobin Concent 34 g/dL (31-37) Red Cell Distribution Width 13.1 % (11.5-14.5) Platelet Count 194 x10^3/uL (140-400) Neutrophils (%) (Auto) 63 % (31-73) Lymphocytes (%) (Auto) 25 % (24-48) Monocytes (%) (Auto) 8 % (0-9) Eosinophils (%) (Auto) 3 % (0-3) Basophils (%) (Auto) 1 % (0-3) Neutrophils # (Auto) 3.9 x10^3uL (1.8-7.7) Lymphocytes # (Auto) 1.5 x10^3/uL (1.0-4.8) Monocytes # (Auto) 0.5 x10^3/uL (0.0-1.1) Eosinophils # (Auto) 0.2 x10^3/uL (0.0-0.7) Basophils # (Auto) 0.0 x10^3/uL (0.0-0.2) Prothrombin Time 11.6 SEC (9.4-11.4) Prothromb Time International Ratio 1.1 (0.9-1.1) Activated Partial Thromboplast Time 25 SEC (23-33) Sodium Level 139 mmol/L (136-145) Potassium Level 3.7 mmol/L (3.5-5.1) Chloride Level 104 mmol/L (98-107) Carbon Dioxide Level 26 mmol/L (21-32) Anion Gap 9 (6-14) Blood Urea Nitrogen 13 mg/dL (8-26) Creatinine 1.2 mg/dL (0.7-1.3) Estimated GFR (Cockcroft-Gault) 65.5 BUN/Creatinine Ratio 11 (6-20) Glucose Level 154 mg/dL (70-99) Calcium Level 8.6 mg/dL (8.5-10.1) Magnesium Level 2.3 mg/dL (1.8-2.4) Total Bilirubin 0.7 mg/dL (0.2-1.0) Aspartate Amino Transf (AST/SGOT) 39 U/L (15-37) Alanine Aminotransferase (ALT/SGPT) 56 U/L (16-63) Alkaline Phosphatase 64 U/L (46-116) Troponin I Quantitative < 0.017 ng/mL (0-0.055) < 0.017 ng/mL (0-0.055) < 0.017 ng/mL (0-0.055) FW-Dwq-L-Type Natriuretic Peptide 15 pg/mL (0-124) Total Protein 7.2 g/dL (6.4-8.2) Albumin 3.9 g/dL (3.4-5.0) Albumin/Globulin Ratio 1.2 (1.0-1.7) Thyroxine (T4) 8.2 ug/dL (4.5-12.0) ECHOCARDIOGRAM Echocardiogram 11/18/19 - 2D + DOPPLER ECHO Interpretation Summary Normal LV size and systolic function. LVEF 55-65% Normal RV size and systolic function. No hemodynamically significant valve disease. ASSESSMENT/PLAN Assessment/Plan 1. Palpitations 2. PAFIB, with RVR upon arrival. Converted back to SR spontaneously in ED. Maintaining SR overnight. Recent echo with preserved LV systolic function as noted above. 3. Hyperlipidemia; LDL 104 4. Hypothyroidism; TSH recently WNL. 5. Elevated glucose Recommendations Metoprolol initiated for rate control [id number] score 0. ASA for stroke prophylaxis for now Check A1C Will arrange outpatient event monitor to assess AFIB burden, guide therapy. Consider outpatient ischemic evaluation Outpatient RACHEL workup Follow up with lead vulcanizing operator, Dr. Hollingsworth upon discharge as scheduled. TERI CROWE APRN Dec 22, 2019 08:10
[2019-12-22] MEDS: METOPROLOL TART IMMED RELEASE 25 MG TABLET PO SCH (08:46)
[2019-12-22] MEDS ORDERED: METO25TA4 PO (09:47)
[2019-12-22 10:41] VITALS: BP 106/61
[2019-12-22] MEDS ORDERED: IPRATRPIUM/ALBUTEROL 0.5/2.5MG 3 ML NEBU. ONE (11:06)
[2019-12-23 03:07] LABS: HEMOGLOBIN A1C 5.6 % (4.8-5.6)
[2019-12-23] MEDS ORDERED: LEVOTHYROXINE 175 MCG TABLET PO SCH (06:00)
[2019-12-23] MEDS ORDERED: ASPIRIN 325 MG TABLET PO SCH (09:00)
--- NOTE | 2019-12-25 14:56 | SSS ---
ADMIT DATE: 12/21/2019 HISTORY OF PRESENT ILLNESS: The patient is a 44-year-old male who came in secondary to palpitations. He was noted in the Emergency Room to have atrial fibrillation with rapid ventricular response. The patient was added with metoprolol. He has had intermittent palpitations for several months now. He has converted back in and off sinus rhythm. The patient was referred to echo, which showed left ventricular systolic dysfunction and otherwise was converted back in and out. The patient was admitted for observation. PAST MEDICAL HISTORY: Hyperlipidemia, hypothyroidism, paroxysmal atrial fibrillation and cholecystectomy. FAMILY HISTORY: Hypertension. SOCIAL HISTORY: He denies smoking. Occasional alcohol use. No drug use. Full code. MEDICATIONS: Zofran, metoprolol 25 b.i.d., aspirin 324, Tylenol, Zofran 4 p.r.n., testosterone 200 mg q. 2 weeks, levothyroxine 175 mcg daily. ALLERGIES: MORPHINE AND SULPHUR. REVIEW OF SYSTEMS: The patient denies any headaches, visual change, blurred vision, double vision. Denies chest pain, shortness of breath. Denies abdominal pain. Denies any melena, hematochezia, hematemesis and neurologically intact. PHYSICAL EXAMINATION: GENERAL: The patient otherwise is a pleasant white male, in no apparent distress. VITAL SIGNS: Blood pressure 114/73, respiratory rate 16, pulse varies anywhere from 148 down to 68. Afebrile. Good oxygen saturation at 98%. The patient otherwise respiratory rate 16. HEENT: The patient's head was atraumatic, normocephalic. Eyes: PERRLA without jaundice. The mouth and throat were normal. NECK: Supple, without JVD or thyromegaly. LUNGS: Diminished throughout, but basically they were clear to auscultation. CARDIOVASCULAR: Regular sinus rhythm, S1, S2, without murmur, rub, thrill, or extra heart sounds. ABDOMEN: Soft, nontender. No rebound or guarding. Positive bowel sounds. No hepatosplenomegaly was noted. EXTREMITIES: No clubbing, cyanosis, nor edema. LABORATORY DATA: Echo from earlier this year, 11/18/2019, left ventricular function of 55%-65%, normal RV size and function. No hemodynamically significant valvular disease. IMPRESSION: Paroxysmal atrial fibrillation with rapid ventricular response, converted spontaneously by increasing metoprolol to control rate, hyperlipidemia, hypothyroidism, hyperglycemia. The patient showed a CHADS2-VASc score of 0 for stroke prophylaxis now. Check A1c. The patient otherwise made a good progress during the rest of his hospitalization and he was seen by Cardiology. The patient's TSH was 1.061, T4 8.2. A1c of 5.6. Sodium and potassium 139 and 3.7. Blood sugar 154. Cardiac enzymes negative. White count 6.2, hemoglobin 17 and hematocrit 50. The patient's urine was unremarkable and coags were negative. The patient was admitted for atrial fibrillation with rapid ventricular response, rate controlled with increased metoprolol, spontaneous recovery. He was discharged home. He will followup with his stock broker supervisor as an outpatient. Seems home meds ____ and will follow him up accordingly. ELLA GALLEGO MD DR: NANDO/yariel JOB#: [id number] / [id number]
== END 2019-12-22 11:03 | disposition home or self-care (01) ==
LOC: ER 13:14 → ICU 16:15
PROVIDERS: ADMIT Family Medicine; ATTEND Family Medicine
DX: I48.20 Chronic atrial fibrillation, unspecified (principal); E78.5 Hyperlipidemia, unspecified; E03.9 Hypothyroidism, unspecified; R73.9 Hyperglycemia, unspecified; Z79.899 Other long term (current) drug therapy; Z79.82 Long term (current) use of aspirin
CPT/HCPCS: 36415; 71045; 80053; 81001; 83036; 83735; 83880; 84436; 84443; 84484; 85025; 85610; 85730; 93005; 99285; G0378; G0379; 99291-25

== ENCOUNTER 2019-12-27 21:18 | Observation (INO) | payer BC ==
[~2019-12-27] VITALS: Ht 180.3 cm; Wt 108.3 kg
[~2019-12-27 21:18] MED LIST changes: +ASPI325T8 PO; +LEVO175T5 PO; +METO25TA4 PO; +TEST200V3 IM
[2019-12-27] MEDS ORDERED: ASPIRIN CHEWABLE 81 MG TABLET. PO ONE (21:30)
--- NOTE | 2019-12-27 21:40 | PHYS DOC ---
Past History Past Medical History: A-Fib, Hypothyroid Additional Past Medical Histor: low testosterone Past Surgical History: Cholecystectomy Additional Past Surgical Histo: SKULL SX Alcohol Use: Occasionally Drug Use: None Adult General Chief Complaint Chief Complaint: CHEST PAIN HPI HPI Patient is a 44-year-old male who presents for palpitations. Onset was within 1 hour prior to arrival. Patient reported palpitations that felt like prior episodes of atrial fibrillation with RVR prompting him to report immediately to our facility for evaluation. Nothing known makes better or worse, patient reports substernal chest pressure during episodes and feelings of impending doom with shortness of breath. Timing of symptoms was constant since onset. Of note, patient was recently discharged from our hospital for new onset atrial fibrillation with RVR. He has been taking 325 mg aspirin daily and was recently started on 25 mg metoprolol twice daily for rate control. He has had no recurrence of symptoms until this evening. Patient denies any known exacerbating or inciting event or stimulus such as recent infection, trauma, or alcohol abuse. Review of Systems Review of Systems Fourteen body systems of review of systems have been reviewed. See HPI for pertinent positives and negative responses, other weiss all other systems are negative, non-pertinent or non-contributory Current Medications Current Medications Current Medications Medications (Trade) Dose Ordered Sig/Marky Start Time Stop Time Status Last Admin Dose Admin Aspirin (Aspirin Chewable) 324 mg 1X ONCE 12/27/19 21:30 12/27/19 21:34 DC Allergies Allergies Allergies Coded Allergies Type Severity Reaction Last Updated Verified morphine Allergy Severe Anaphylaxis 12/21/19 Yes Sulfa (Sulfonamide Antibiotics) Allergy Intermediate 12/21/19 Yes Physical Exam Physical Exam Constitutional: Well developed, well nourished, no acute distress, non-toxic appearance. HENT: Normocephalic, atraumatic, bilateral external ears normal, oropharynx moist, no oral exudates, nose normal. Eyes: PERRLA, EOMI, conjunctiva normal, no discharge. Neck: Normal range of motion, no tenderness, supple, no stridor. Cardiovascular: Heart rate regular, irregularly irregular rhythm, no murmurs rubs or gallops Lungs & Thorax: Bilateral breath sounds clear to auscultation Abdomen: Bowel sounds normal, soft, no tenderness, no masses, no pulsatile masses. Nonsurgical abdomen, no peritoneal signs Skin: Warm, dry, no erythema, no rash. Back: No tenderness, no CVA tenderness. Extremities: No tenderness, no cyanosis, no clubbing, ROM intact, no edema. Neurologic: Alert and oriented X 3, grossly normal motor & sensory function, no focal deficits noted. Psychologic: Affect normal, judgement normal, anxious mood Current Patient Data Vital Signs Vital Signs Date Time Temp Pulse Resp B/P (MAP) Pulse Ox O2 Delivery O2 Flow Rate FiO2 12/27/19 21:27 98.2 76 16 149/82 (104) 98 Room Air Lab Results Laboratory Tests Test 12/27/19 21:57 White Blood Count 6.6 x10^3/uL (4.0-11.0) Red Blood Count 5.18 x10^6/uL (4.30-5.70) Hemoglobin 16.2 g/dL (13.0-17.5) Hematocrit 47.7 % (39.0-53.0) Mean Corpuscular Volume 92 fL (79-100) Mean Corpuscular Hemoglobin 31 pg (25-35) Mean Corpuscular Hemoglobin Concent 34 g/dL (31-37) Red Cell Distribution Width 13.1 % (11.5-14.5) Platelet Count 199 x10^3/uL (140-400) Neutrophils (%) (Auto) 42 % (31-73) Lymphocytes (%) (Auto) 41 % (24-48) Monocytes (%) (Auto) 11 % (0-9) Eosinophils (%) (Auto) 5 % (0-3) Basophils (%) (Auto) 1 % (0-3) Neutrophils # (Auto) 2.8 x10^3uL (1.8-7.7) Lymphocytes # (Auto) 2.7 x10^3/uL (1.0-4.8) Monocytes # (Auto) 0.7 x10^3/uL (0.0-1.1) Eosinophils # (Auto) 0.3 x10^3/uL (0.0-0.7) Basophils # (Auto) 0.1 x10^3/uL (0.0-0.2) Sodium Level 142 mmol/L (136-145) Potassium Level 3.8 mmol/L (3.5-5.1) Chloride Level 107 mmol/L (98-107) Carbon Dioxide Level 25 mmol/L (21-32) Anion Gap 10 (6-14) Blood Urea Nitrogen 17 mg/dL (8-26) Creatinine 1.3 mg/dL (0.7-1.3) Estimated GFR (Cockcroft-Gault) 59.7 BUN/Creatinine Ratio 13 (6-20) Glucose Level 125 mg/dL (70-99) Calcium Level 8.5 mg/dL (8.5-10.1) Total Bilirubin 0.2 mg/dL (0.2-1.0) Aspartate Amino Transf (AST/SGOT) 16 U/L (15-37) Alanine Aminotransferase (ALT/SGPT) 46 U/L (16-63) Alkaline Phosphatase 84 U/L (46-116) Troponin I Quantitative < 0.017 ng/mL (0-0.055) Total Protein 6.7 g/dL (6.4-8.2) Albumin 3.7 g/dL (3.4-5.0) Albumin/Globulin Ratio 1.2 (1.0-1.7) EKG EKG EKG ordered and interpreted by myself at 2130 hrs. as sinus rhythm at 68 bpm, unremarkable intervals, no axis deviation, no acute ischemic findings, no STEMI Radiology/Procedures Radiology/Procedures PROCEDURE: PORTABLE CHEST 1V PORTABLE CHEST 1V Clinical History: Reason: cp / Spl. Instructions: / History: Technique: AP view of the chest was obtained at 12/27/2019 9:23 PM. Comparison: December 21, 2019. Findings: The cardiomediastinal silhouette is normal. The pulmonary vasculature is normal. A few linear opacities in the lower lungs is likely discoid atelectasis. Impression: No evidence of an acute cardiopulmonary process. Electronically signed by: Harsha Quintanilla III, MD (12/27/2019 11:16 PM) [facility] Course & Med Decision Making Course & Med Decision Making Patient immediately seen on ER arrival Airway patent, mild respiratory distress on arrival, vital signs remarkable for A. fib with RVR fluctuating from 120 to 140 bpm IV access obtained and by time patient was hooked up to room monitors, patient appeared to be rate controlled with rate fluctuating from 60 to 80 bpm, patient asymptomatic Comprehensive history and physical exam obtained, subsequent diagnostic studies ordered Patient reassessed numerous times and watched via telemetry throughout ER visit without recurrence of A. fib with RVR Nonetheless, reviewed patient's work-up and discussed he was high risk for recurrence and potential adverse cardiac events. Patient likely needs to increase his metoprolol for rate control I discussed with his primary care physician, Dr. Gallego, potential need for admission and he agreed for continued chest pain rule out CT and tweaking medication changes for high risk patient I discussed with the patient my recommendation for admission and he was amenable, all questions and concerns addressed prior to ER departure in stable condition to [facility] for continued medical surveillance and intervention Dragon Disclaimer Dragon Disclaimer This electronic medical record was generated, in whole or in part, using a voice recognition dictation system. The HEART Score for CP Pts HEART Score for Chest Pain: HEART Score for Chest Pain Response (Comments) Value History Highly Suspicious 2 ECG Normal 0 Age >45 - < 65 1 Risk Factors 1 or 2 Risk Factors 1 Troponin < Normal Limit 0 Total 4 Risk Factors: Risk Factors: DM, Current or recent (<one month) smoker, HTN, HLP, family history of CAD, obesity. Risk Scores: Score 0 - 3: 2.5% MACE over next 6 weeks - Discharge Home Score 4 - 6: 20.3% MACE over next 6 weeks - Admit for Clinical Observation Score 7 - 10: 72.7% MACE over next 6 weeks - Early Invasive Strategies Departure Departure: Impression: Primary Impression: Atrial fibrillation with RVR Disposition: ADMITTED INPATIENT ([place]) Admitting Physician: Ella Gallego Condition: STABLE Referrals: ELLA GALLEGO MD (PCP) Justification of Admission: Justification of Admission: Justification of Admission Dx: Yes (ATRIAL FIB WITH RVR, IMPROVED, HIGH RISK) RAYO SKELTON DO Dec 27, 2019 21:40
[2019-12-27 22:08] LABS: BASO # 0.1 x10^3/uL (0.0-0.2); BASO % 1 % (0-3); EOS # 0.3 x10^3/uL (0.0-0.7); EOS % 5 % (0-3); HEMATOCRIT 47.7 % (39.0-53.0); HEMOGLOBIN 16.2 g/dL (13.0-17.5); LYMPH # 2.7 x10^3/uL (1.0-4.8); LYMPH % 41 % (24-48); MEAN CORPUSCULAR HEMOGLOBIN 31 pg (25-35); MEAN CORPUSCULAR HGB CONC 34 g/dL (31-37); MEAN CORPUSCULAR VOLUME 92 fL (79-100); MONO # 0.7 x10^3/uL (0.0-1.1); MONO % 11 % (0-9); NEUT # 2.8 x10^3uL (1.8-7.7); NEUT % 42 % (31-73); PLATELET COUNT 199 x10^3/uL (140-400); RED BLOOD COUNT 5.18 x10^6/uL (4.30-5.70); RED CELL DISTRIBUTION WIDTH 13.1 % (11.5-14.5); WHITE BLOOD COUNT 6.6 x10^3/uL (4.0-11.0)
[2019-12-27 22:29] LABS: CALCIUM 8.5 mg/dL (8.5-10.1); CREATININE 1.3 mg/dL (0.7-1.3); GFR 59.7; POTASSIUM 3.8 mmol/L (3.5-5.1)
[2019-12-27 22:40] LABS: ALBUMIN 3.7 g/dL (3.4-5.0); ALBUMIN/GLOBULIN RATIO 1.2 (1.0-1.7); TOTAL BILIRUBIN 0.2 mg/dL (0.2-1.0); TOTAL PROTEIN 6.7 g/dL (6.4-8.2)
[2019-12-27] MEDS ORDERED: NITROGLYCERIN SUBLINGUAL 0.4 MG BOTTLE OF 25. SL PRN (22:45)
--- NOTE | 2019-12-27 23:19 | RAD ---
PORTABLE CHEST 1V Clinical History: Reason: cp / Spl. Instructions: / History: Technique: AP view of the chest was obtained at 12/27/2019 9:23 PM. Comparison: December 21, 2019. Findings: The cardiomediastinal silhouette is normal. The pulmonary vasculature is normal. A few linear opacities in the lower lungs is likely discoid atelectasis. Impression: No evidence of an acute cardiopulmonary process. Electronically signed by: Harsha Quintanilla III, MD (12/27/2019 11:16 PM) [facility]
--- NOTE | 2019-12-27 23:31 | EKG ---
[facility] ED [facility] [address] [place] [id number] Test Date: 2019-12-27 Test Time: 21:24:53 Pat Name: ROSY SULTANA Department: Room: 119 A Gender: M Ham Boner: : 1975 Requested By: RAYO SKELTON Order Number: [id number] Reading MD: Titi Engel MD Measurements Intervals [place] Rate: 68 P: 59 TX: 190 QRS: 67 QRSD: 82 T: 46 QT: 354 QTc: 377 Interpretive Statements SINUS RHYTHM Electronically Signed On 12-28-2019 11:09:40 CDT by Titi Engel MD
[2019-12-27 23:37] VITALS: BP 126/73
--- NOTE | 2019-12-27 23:50 | NUR ---
Pt admitted to [address] [place] [address] 119 from ER via [facility], accompanied by EMS and nursing staff. Pt ambulated to bed from [facility] independently, steady gait noted. Admission assessment completed. VSS. Pt placed on Telemetry, SR to Carolyn noted on monitor. Health history and home medications reviewed with pt. SCDs for VTE. Pt currently denies chest pain or discomfort. Pt was given written information regarding hospital policies, unit procedures and contact persons. Valuables were checked and left at bedside. Pt has a scheduled follow up appointment with Dr. Hollingsworth (Ostomy Nurse) on Jan 27 at 1:30PM @ [facility].
[2019-12-28 05:32] VITALS: BP 116/70
[2019-12-28] MEDS ORDERED: METOPROLOL TART IMMED RELEASE 25 MG TABLET PO SCH ×3 (10:45→21:00)
[2019-12-28 11:00] VITALS: BP 114/73
[2019-12-28] MEDS ORDERED: METO25TA4 PO ×2 (11:16→14:57)
[2019-12-29] MEDS ORDERED: LEVOTHYROXINE 175 MCG TABLET PO SCH (06:00)
[2019-12-29] MEDS ORDERED: ASPIRIN 325 MG TABLET PO SCH (09:00)
== END 2019-12-28 15:10 | disposition home or self-care (01) ==
LOC: ER 21:18 → INTOOBSV 23:10 → 1 SOUTH 23:10
PROVIDERS: ADMIT Family Medicine; ATTEND Family Medicine
DX: I48.20 Chronic atrial fibrillation, unspecified (principal); R07.2 Precordial pain; E03.9 Hypothyroidism, unspecified; Z90.49 Acquired absence of other specified parts of digestive tract; Z79.82 Long term (current) use of aspirin; Z79.899 Other long term (current) drug therapy
CPT/HCPCS: 36415; 71045; 80053; 84484; 85025; 93005; 99285; G0378; G0379

== ENCOUNTER 2019-12-28 18:25 | Emergency (ER) | payer BC ==
[~2019-12-28] VITALS: Ht 180.3 cm; Wt 108.3 kg
[2019-12-28 18:42] VITALS: BP 142/83
--- NOTE | 2019-12-28 18:49 | EKG ---
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
--- NOTE | 2019-12-28 18:49 | PHYS DOC ---
Past History Past Medical History: A-Fib, Hypothyroid Additional Past Medical Histor: low testosterone Past Surgical History: Cholecystectomy Additional Past Surgical Histo: SKULL SX Alcohol Use: Occasionally Drug Use: None Adult General Chief Complaint Chief Complaint: Palpitations HPI HPI Patient is a 44-year-old male who presents for atrial fibrillation with RVR. Patient was seen and evaluated at our ER yesterday evening and subsequently admitted. He was discharged home today and has been asymptomatic in sinus rhythm until sitting down to eat dinner out at a restaurant. Patient reported classic feelings of palpitations similar to prior episodes of A. fib with RVR. Per , patient turned nichols and ill-appearing. Patient had not taken daily metoprolol given low heart rate and subsequently took his dose of 25 mg p.o. proximately 10 minutes into episode. Patient was transported via POV to our facility and after roughly 30 minutes of symptoms, patient became asymptomatic and converted back to sinus rhythm. Patient asymptomatic otherwise at present but aggravated due to recurrent episodes of atrial fibrillation with RVR. Of note he took 325 mg p.o. aspirin today Review of Systems Review of Systems Fourteen body systems of review of systems have been reviewed. See HPI for pertinent positives and negative responses, other weiss all other systems are negative, non-pertinent or non-contributory Allergies Allergies Allergies Coded Allergies Type Severity Reaction Last Updated Verified morphine Allergy Severe Anaphylaxis 12/21/19 Yes Sulfa (Sulfonamide Antibiotics) Allergy Intermediate 12/21/19 Yes Physical Exam Physical Exam Constitutional: Well developed, well nourished, no acute distress, non-toxic appearance. HENT: Normocephalic, atraumatic, bilateral external ears normal, oropharynx m oist, no oral exudates, nose normal. Eyes: PERRLA, EOMI, conjunctiva normal, no discharge. Neck: Normal range of motion, no tenderness, supple, no stridor. Cardiovascular: Heart rate regular, sinus rhythm, no murmurs rubs or gallops Lungs & Thorax: Bilateral breath sounds clear to auscultation Abdomen: Bowel sounds normal, soft, no tenderness, no masses, no pulsatile masses. Nonsurgical abdomen, no peritoneal signs Skin: Warm, dry, no erythema, no rash. Back: No tenderness, no CVA tenderness. Extremities: No tenderness, no cyanosis, no clubbing, ROM intact, no edema. Neurologic: Alert and oriented X 3, grossly normal motor & sensory function, no focal deficits noted. Psychologic: Affect normal, judgement normal, mood normal. Current Patient Data Vital Signs Vital Signs Date Time Temp Pulse Resp B/P (MAP) Pulse Ox O2 Delivery O2 Flow Rate FiO2 12/28/19 18:42 98.3 66 16 142/83 (102) 95 Room Air Lab Results Laboratory Tests Test 12/28/19 18:36 White Blood Count 6.2 x10^3/uL (4.0-11.0) Red Blood Count 5.48 x10^6/uL (4.30-5.70) Hemoglobin 16.9 g/dL (13.0-17.5) Hematocrit 50.4 % (39.0-53.0) Mean Corpuscular Volume 92 fL (79-100) Mean Corpuscular Hemoglobin 31 pg (25-35) Mean Corpuscular Hemoglobin Concent 34 g/dL (31-37) Red Cell Distribution Width 13.2 % (11.5-14.5) Platelet Count 203 x10^3/uL (140-400) Neutrophils (%) (Auto) 48 % (31-73) Lymphocytes (%) (Auto) 36 % (24-48) Monocytes (%) (Auto) 11 % (0-9) Eosinophils (%) (Auto) 5 % (0-3) Basophils (%) (Auto) 1 % (0-3) Neutrophils # (Auto) 2.9 x10^3uL (1.8-7.7) Lymphocytes # (Auto) 2.2 x10^3/uL (1.0-4.8) Monocytes # (Auto) 0.7 x10^3/uL (0.0-1.1) Eosinophils # (Auto) 0.3 x10^3/uL (0.0-0.7) Basophils # (Auto) 0.1 x10^3/uL (0.0-0.2) Sodium Level 141 mmol/L (136-145) Potassium Level 3.9 mmol/L (3.5-5.1) Chloride Level 106 mmol/L (98-107) Carbon Dioxide Level 25 mmol/L (21-32) Anion Gap 10 (6-14) Blood Urea Nitrogen 15 mg/dL (8-26) Creatinine 1.3 mg/dL (0.7-1.3) Estimated GFR (Cockcroft-Gault) 59.7 BUN/Creatinine Ratio 12 (6-20) Glucose Level 88 mg/dL (70-99) Calcium Level 8.9 mg/dL (8.5-10.1) Total Bilirubin 0.4 mg/dL (0.2-1.0) Aspartate Amino Transf (AST/SGOT) 20 U/L (15-37) Alanine Aminotransferase (ALT/SGPT) 50 U/L (16-63) Alkaline Phosphatase 69 U/L (46-116) Troponin I Quantitative < 0.017 ng/mL (0-0.055) Total Protein 7.1 g/dL (6.4-8.2) Albumin 3.9 g/dL (3.4-5.0) Albumin/Globulin Ratio 1.2 (1.0-1.7) EKG EKG EKG ordered and interpreted by myself at 1847 hrs. as sinus rhythm at 62 bpm, unremarkable intervals, no axis deviation, no obvious fascicular blocks or acute ischemic findings, no STEMI Radiology/Procedures Radiology/Procedures [] Course & Med Decision Making Course & Med Decision Making Asymptomatic ambulatory well-appearing patient seen on immediate ER arrival ABCs non-concerning, IV access obtained Comprehensive history and physical examination performed, reviewed extensive work-up in past 7 days performed in our emergency department and hospital setting Patient remained in sinus rhythm on monitor throughout ER visit and a symptomatic; however, patient case discussed with PCP who is concerned for recurrent episodes of A. fib. Joint decision to transfer to [facility] for painting technician consultation for consideration for invasive intervention I discussed this with patient, he was amenable to transfer On-call hospitalist, Dr. Herndon, contacted and case discussed. He agreed to admit patient under his care and have a cardiology service consulted I updated patient of this decision and he was amenable to transfer. Patient adamant of transferring to other facility via POV given asymptomatic status. I advised against this, discussed potential risks and benefits of foregoing transportation via EMS such as repeat atrial fibrillation with RVR without IV access or medical assistant internal medicine and tools available to provide immediate medical care. I also discussed potential of between transportation from our facility to [facility] Patient with full capacity was able to weigh the risks and benefits of this decision and still wanted to pursue transporting himself over to [facility] via POV assuming all risk of transfer via POV. All questions and concerns addressed prior to our ER departure in stable condition [place] Disclaimer Dragon Disclaimer This electronic medical record was generated, in whole or in part, using a voice recognition dictation system. Departure Departure: Impression: Primary Impression: Atrial fibrillation with RVR Disposition: 05 TRANSFER OTHER ([facility] Admitting Physician: Other ([place]) Condition: STABLE Referrals: ELLA GALLEGO MD (PCP) Justification of Admission: Justification of Admission: Justification of Admission Dx: Yes (Recurrent atrial fibrillation with RVR) RAYO SKELTON DO Dec 28, 2019 18:49
[2019-12-28 19:37] LABS: BASO # 0.1 x10^3/uL (0.0-0.2); BASO % 1 % (0-3); EOS # 0.3 x10^3/uL (0.0-0.7); EOS % 5 % (0-3); HEMATOCRIT 50.4 % (39.0-53.0); HEMOGLOBIN 16.9 g/dL (13.0-17.5); LYMPH # 2.2 x10^3/uL (1.0-4.8); LYMPH % 36 % (24-48); MEAN CORPUSCULAR HEMOGLOBIN 31 pg (25-35); MEAN CORPUSCULAR HGB CONC 34 g/dL (31-37); MEAN CORPUSCULAR VOLUME 92 fL (79-100); MONO # 0.7 x10^3/uL (0.0-1.1); MONO % 11 % (0-9); NEUT # 2.9 x10^3uL (1.8-7.7); NEUT % 48 % (31-73); PLATELET COUNT 203 x10^3/uL (140-400); RED BLOOD COUNT 5.48 x10^6/uL (4.30-5.70); RED CELL DISTRIBUTION WIDTH 13.2 % (11.5-14.5); WHITE BLOOD COUNT 6.2 x10^3/uL (4.0-11.0)
[2019-12-28 19:39] LABS: CALCIUM 8.9 mg/dL (8.5-10.1); CREATININE 1.3 mg/dL (0.7-1.3); GFR 59.7; POTASSIUM 3.9 mmol/L (3.5-5.1)
[2019-12-28 19:45] LABS: ALBUMIN 3.9 g/dL (3.4-5.0); ALBUMIN/GLOBULIN RATIO 1.2 (1.0-1.7); TOTAL BILIRUBIN 0.4 mg/dL (0.2-1.0); TOTAL PROTEIN 7.1 g/dL (6.4-8.2)
== END 2019-12-28 20:30 | disposition short-term general hospital (02) ==
LOC: ER 18:25
DX: I48.20 Chronic atrial fibrillation, unspecified (principal); E03.9 Hypothyroidism, unspecified; Z88.5 Allergy status to narcotic agent; Z88.2 Allergy status to sulfonamides
CPT/HCPCS: 36415; 80053; 84484; 85025; 93005; 99285

== ENCOUNTER 2020-01-31 17:26 | Inpatient (IN) | payer BC ==
[~2020-01-31] VITALS: Ht 180.3 cm; Wt 108.1 kg
--- NOTE | 2020-01-31 17:47 | PHYS DOC ---
Past History Past Medical History: A-Fib, High Cholesterol, Hypothyroid Additional Past Medical Histor: low testosterone Past Surgical History: Cholecystectomy Additional Past Surgical Histo: SKULL SX Alcohol Use: Occasionally Drug Use: None General Adult EDM: Chief Complaint: CHEST PAIN HPI: HPI: ". I am having some chest pain.. and really fast heart rate..." I have some Metoprolol.... to help control it if get too fast..." Patient is a 44 year old male who presents with above hx and complaints chest pain . Monitor shows obvious A. fib with rapid ventricular response with frequent PVCs. Patient states chest pain is been present at night since onset of tachycardia. No history of bad food intake. No history of travel. No history of specific ill contacts. Has had previous episodes of A. fib. Patient has follow-up with cardiology. Hx elevated cholesterol, hypertension, hypothyroidism, and low testosterone. The patient is on Eliquis 5 mg twice a day. The patient follows with Dr. Gallego Review of Systems: Review of Systems: Constitutional: Denies fever or chills Eyes: Denies change in visual acuity HENT: Denies nasal congestion or sore throat Respiratory: Denies cough or shortness of breath Cardiovascular: Complains of chest pain and tachycardia GI: Denies abdominal pain, nausea, vomiting, bloody stools or diarrhea : Denies dysuria Musculoskeletal: Denies back pain or joint pain Integument: Denies rash Neurologic: Denies headache, focal weakness or sensory changes Endocrine: Denies polyuria or polydipsia Lymphatic: Denies swollen glands Psychiatric: Denies depression or anxiety Heart Score: HEART Score for Chest Pain: HEART Score for Chest Pain Response (Comments) Value History Moderately Suspicious 1 ECG Nonspecific Repolarizatio 1 Age >45 - < 65 1 Risk Factors 1 or 2 Risk Factors 1 Troponin < Normal Limit 0 Total 4 Risk Factors: Risk Factors: DM, Current or recent (<one month) smoker, HTN, HLP, family history of CAD, obesity. Risk Scores: Score 0 - 3: 2.5% MACE over next 6 weeks - Discharge Home Score 4 - 6: 20.3% MACE over next 6 weeks - Admit for Clinical Observation Score 7 - 10: 72.7% MACE over next 6 weeks - Early Invasive Strategies Family History: Family History: Noncontributory to presentation Current Medications: Current Meds: See nursing for home meds Allergies: Allergies: Allergies Coded Allergies Type Severity Reaction Last Updated Verified morphine Allergy Severe Anaphylaxis 12/21/19 Yes Sulfa (Sulfonamide Antibiotics) Allergy Intermediate 12/21/19 Yes Physical Exam: PE: Constitutional: Moderate acute distress, non-toxic appearance. [] HENT: Normocephalic, atraumatic, bilateral external ears normal, oropharynx moist, no oral exudates, nose normal. [] Eyes: PERRLA, EOMI, conjunctiva normal, no discharge. [] Neck: Normal range of motion, no tenderness, supple, no stridor. [] Cardiovascular: Irregular heart rate and irregular rhythm, no murmur [] tachycardia Lungs & Thorax: Bilateral breath sounds equal at apex auscultation [] Abdomen: Bowel sounds normal, soft, no tenderness, no masses, no pulsatile ariel s. Old surgical scar Skin: Warm, diaphoretic, no erythema, no rash. [] Back: No tenderness, no CVA tenderness. [] Extremities: No tenderness, no cyanosis, no clubbing, ROM intact, no edema. No cording appreciated Neurologic: Alert and oriented X 3, normal motor function, normal sensory function, no focal deficits noted. [] Psychologic: Affect anxious, judgement normal, mood normal. [] Current Patient Data: Vital Signs: Vital Signs Date Time Temp Pulse Resp B/P (MAP) Pulse Ox O2 Delivery O2 Flow Rate FiO2 01/31/20 17:36 98.3 140 22 142/83 (102) 97 Room Air EKG: EKG: EKG shows a irregular rhythm with no obvious P waves. Does have occasional PVCs. Ventricular rate running at 130. Findings consistent with A. fib with rapid ventricular response EKG of 1731 Hrs. EKG 2 shows a sinus bradycardia. No findings acute STEMI with contralateral changes. Time of second EKG is 2151 hrs. [] Radiology/Procedures: Radiology/Procedures: [][address] [address] IMAGING REPORT Signed PATIENT: ROSY SULTANA ACCOUNT: [id number] : 1975 LOCATION: ER AGE: 44 SEX: M EXAM STATUS: REG ER ORD. PHYSICIAN: YESENIA PURVIS MD REASON: cp PROCEDURE: PORTABLE CHEST 1V Exam: Chest one view INDICATION: Chest pain TECHNIQUE: Frontal view of the chest Comparisons: 12/27/2019 FINDINGS: The cardiomediastinal silhouette and pulmonary vessels are within normal limits. The lung and pleural spaces are clear. IMPRESSION: No acute cardiopulmonary process. Electronically signed by: Sandra Saunders MD (01/31/2020 6:53 PM) [id number] DICTATED AND SIGNED BY: SANDRA SAUNDERS MD DATE: 01/31/20 1853 CC: ELLA GALLEGO MD; YESENIA PURVIS MD ~ Course & Med Decision Making: Course & Med Decision Making Pertinent Labs and Imaging studies reviewed. (See chart for details) Discussed presentation, testing and tx plan with Dr. Gallego. Admit with cardiology consult. Impression: 1. Chest Pain 2. Afib with rapid ventricular response 3. HTN [] Dragon Disclaimer: Dragon Disclaimer: This electronic medical record was generated, in whole or in part, using a voice recognition dictation system. Departure Departure: Disposition: 01 DC HOME SELF CARE/HOMELESS Condition: STABLE Referrals: ELLA GALLEGO MD (PCP) Dragon Disclaimer This chart was dictated in whole or in part using Voice Recognition software in a busy, high-work load, and often noisy Emergency Department environment. It may contain unintended and wholly unrecognized errors or omissions. Dragon Disclaimer This chart was dictated in whole or in part using Voice Recognition software in a busy, high-work load, and often noisy Emergency Department environment. It may contain unintended and wholly unrecognized errors or omissions. Dragon Disclaimer This chart was dictated in whole or in part using Voice Recognition software in a busy, high-work load, and often noisy Emergency Department environment. It may contain unintended and wholly unrecognized errors or omissions. YESENIA PURVIS MD Jan 31, 2020 17:47
[2020-01-31] MEDS ORDERED: IV RINGERS SOLUTION,LACTATED 1,000 ML IV SCH (17:51)
[2020-01-31] MEDS ORDERED: dilTIAZem 25 MG/5 ML VIAL IVP ONE (18:00)
--- NOTE | 2020-01-31 18:00 | EKG ---
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
[2020-01-31 18:04] LABS: BASO # 0.1 x10^3/uL (0.0-0.2); BASO % 1 % (0-3); EOS # 0.4 x10^3/uL (0.0-0.7); EOS % 5 % (0-3); HEMATOCRIT 49.2 % (39.0-53.0); HEMOGLOBIN 16.8 g/dL (13.0-17.5); LYMPH # 2.9 x10^3/uL (1.0-4.8); LYMPH % 34 % (24-48); MEAN CORPUSCULAR HEMOGLOBIN 31 pg (25-35); MEAN CORPUSCULAR HGB CONC 34 g/dL (31-37); MEAN CORPUSCULAR VOLUME 91 fL (79-100); MONO # 0.8 x10^3/uL (0.0-1.1); MONO % 9 % (0-9); NEUT # 4.4 x10^3uL (1.8-7.7); NEUT % 51 % (31-73); PLATELET COUNT 194 x10^3/uL (140-400); RED BLOOD COUNT 5.42 x10^6/uL (4.30-5.70); RED CELL DISTRIBUTION WIDTH 13.2 % (11.5-14.5); WHITE BLOOD COUNT 8.6 x10^3/uL (4.0-11.0)
[2020-01-31 18:08] LABS: CALCIUM 9.3 mg/dL (8.5-10.1); CREATININE 1.4 mg/dL (0.7-1.3); GFR 54.8; POTASSIUM 3.7 mmol/L (3.5-5.1)
[2020-01-31 18:21] LABS: DIRECT BILIRUBIN 0.1 mg/dL (0.0-0.2); TOTAL BILIRUBIN 0.4 mg/dL (0.2-1.0); TOTAL PROTEIN 7.2 g/dL (6.4-8.2)
[2020-01-31 18:49] LABS: AMPHETAMINE/METHAMPHETAMINE NEG (NEG); BARBITURATES NEG (NEG); BENZODIAZEPINES NEG (NEG); CANNABINOIDS NEG (NEG); COCAINE NEG (NEG); METHADONE NEG (NEG); OPIATES NEG (NEG); PHENCYCLIDINE NEG (NEG)
[2020-01-31 18:54] LABS: BILIRUBIN,URINE NEG (NEG); CLARITY,URINE CLEAR; COLOR,URINE YELLOW; GLUCOSE,URINE NEG (NEG)
[2020-01-31 18:55] LABS: BACTERIA,URINE 0 /HPF (0-FEW); NITRITE,URINE NEG (NEG); RBC,URINE 0 /HPF (0-2); UROBILINOGEN,URINE 0.2 mg/dL (0.2 mg/dL); WBC,URINE 0 /HPF (0-4)
--- NOTE | 2020-01-31 18:56 | RAD ---
Exam: Chest one view INDICATION: Chest pain TECHNIQUE: Frontal view of the chest Comparisons: 12/27/2019 FINDINGS: The cardiomediastinal silhouette and pulmonary vessels are within normal limits. The lung and pleural spaces are clear. IMPRESSION: No acute cardiopulmonary process. Electronically signed by: Sandra Bustillo MD (01/31/2020 6:53 PM) [id number]
[2020-01-31] MEDS ORDERED: ACETAMINOPHEN 325 MG TABLET PO PRN (22:15)
[2020-01-31] MEDS ORDERED: ONDANSETRON PF 4 MG/2 ML VIAL. IVP PRN (22:15)
[2020-01-31] MEDS ORDERED: ANTI-COAG MONITOR BY PHARMACY. MC PRN (22:30)
[2020-01-31 23:15] VITALS: BP 128/90
--- NOTE | 2020-01-31 23:15 | NUR ---
Admission Note: Pt transported via EMS from ED to ICU 6. Pt ambulated from cart to bed independently, steady gait observed. VSS, no c/o n/v or pain at this time, admission documentation completed, pt oriented to room/surroundings/call light/ and unit routines. Will continue to monitor.
[2020-01-31] MEDS ORDERED: FLEC100T PO (23:24)
[2020-01-31] MEDS ORDERED: METO25TA4 PO (23:24)
[2020-01-31] MEDS ORDERED: APIX5TAB3 PO (23:24)
--- NOTE | 2020-01-31 23:24 | EKG ---
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
[2020-01-31] MEDS: APIXABAN 5 MG TABLET. PO SCH (23:46)
[2020-02-01] MEDS: IPRATRPIUM/ALBUTEROL 0.5/2.5MG 3 ML NEBU. NEB SCH ×2 (05:30→11:32)
--- NOTE | 2020-02-01 05:51 | NUR ---
Cardiology consult called to answering service this am
--- NOTE | 2020-02-01 05:52 | NUR ---
Shift Note: pt a/o x4, no c/o pain or n/v throughout remainder of shift, pt remained in NSR to SB throughout the remainder of shift. Pt states he is ready to go home.
[2020-02-01 06:27] LABS: CALCIUM 8.7 mg/dL (8.5-10.1); CREATININE 1.3 mg/dL (0.7-1.3); GFR 59.7
[2020-02-01 06:34] LABS: BASO % 1 % (0-3); EOS # 0.4 x10^3/uL (0.0-0.7); EOS % 6 % (0-3); HEMATOCRIT 49.1 % (39.0-53.0); HEMOGLOBIN 16.4 g/dL (13.0-17.5); LYMPH # 2.2 x10^3/uL (1.0-4.8); LYMPH % 35 % (24-48); MEAN CORPUSCULAR HEMOGLOBIN 31 pg (25-35); MEAN CORPUSCULAR HGB CONC 33 g/dL (31-37); MEAN CORPUSCULAR VOLUME 92 fL (79-100); MONO # 0.7 x10^3/uL (0.0-1.1); MONO % 11 % (0-9); NEUT % 48 % (31-73); PLATELET COUNT 173 x10^3/uL (140-400); RED BLOOD COUNT 5.35 x10^6/uL (4.30-5.70); RED CELL DISTRIBUTION WIDTH 13.2 % (11.5-14.5); WHITE BLOOD COUNT 6.3 x10^3/uL (4.0-11.0)
[2020-02-01 08:18] VITALS: BP 129/93
[2020-02-01] MEDS: APIXABAN 5 MG TABLET. PO SCH (08:26)
[2020-02-01] MEDS ORDERED: FLU VACC QS 2020-21(6MOS+)/PF 0.5 ML SYRINGE. VAX IM ONE (09:00)
[2020-02-01] MEDS ORDERED: FLECAINIDE 50 MG TABLET. PO SCH (09:00)
[2020-02-01] MEDS ORDERED: LEVOTHYROXINE 175 MCG TABLET PO SCH (09:00)
--- NOTE | 2020-02-01 09:00 | PDOC2 ---
TERI CROWE MIKI 02/01/20 0900: CARDIAC CONSULT DATE OF CONSULT DOS: DATE: 02/01/20 TIME: 08:58 REASON FOR CONSULT Reason for Consult AFIB with RVR, DAVE REFERRING PHYSICIAN Referring Physician Dr. Simpson SOURCE Source: Chart review, Patient HPI History of Present Illness This is a 44 yo male well known to us from previous hospital admissions, who presented secondary to palpitations/AFIB, tachycardia, and chest pressure. Patient has a history of PAFIB. Is scheduled with EP tomorrow in out office. Yesterday, was very active all morning mowing grass and doing other things at home. Lucas well with exertion. Reports later in the day, had a glass of cold ice water and then had reoccurrence of AIFB. Could tell his "hear was flopping around". Knew he had gone back into AFIB. Initially, rate felt controlled, but then became faster. Began having rapid heart rate the was associated with chest pressure. Symptoms persisted for over an hour so he came into the ED for further evaluation and treatment.. Patient convert back to SR with Cardizem IVP and has been maintaining overnight. Patient reports compliance with meds. Is taking metoprolol PRN as resting HR is low end. PAST MEDICAL HISTORY Cardiovascular: AFIB, hyperipidemia Endocrine: Hypothyroidism PAST SURGICAL HISTORY Past Surgical History: Cholecystectomy FAMILY HISTORY Family History: Hypertension SOCIAL HISTORY Smoke: No ALCOHOL: occassional Drugs: None Lives: with Family CURRENT MEDICATIONS Current Medications Current Medications Lactated Ringer's 1,000 ml @ 100 mls/hr Q10H IV Last administered on 01/20 05/11at 18:06; Start 01/31/20 at 17:51; Stop 02/01/20 at 03:50; Status DC Diltiazem HCl (Cardizem Iv Push) 10 mg 1X ONCE IVP Last administered on 01/31/20at 18:15; Start 01/31/20 at 18:00; Stop 01/31/20 at 18:01; Status DC Ondansetron HCl (Zofran) 4 mg PRN Q4HRS PRN IVP NAUSEA/VOMITING; Start 01/31/20 at 22:15; Stop 02/01/20 at 22:14 Acetaminophen (Tylenol) 650 mg PRN Q4HRS PRN PO FEVER > 100.3'F; Start 01/31/20 at 22:15; Stop 02/01/20 at 22:14 Albuterol/ Ipratropium (Duoneb) 3 ml RTQID NEB ; Start 02/01/20 at 08:00; Stop 02/02/20 at 07:59 Apixaban (Eliquis) 5 mg BID PO Last administered on 02/01/20at 08:26; Start 1 at 23:00 Info (Anti-Coagulation Monitoring By Pharmacy) 1 each PRN DAILY PRN MC SEE COMMENTS; Start 01/31/20 at 22:30 Influenza Virus Vaccine Quadrival (Fluzone Quad [id number] Syringe) 0.5 ml ONCE ONCE VAX IM Last administered on 02/01/20at 08:27; Start 02/01/20 at 09:00; Stop 02/01/20 at 09:01 Levothyroxine Sodium (Synthroid) 175 mcg DAILY PO Last administered on 04/10at 08:26; Start 02/01/20 at 09:00 Flecainide Acetate (Tambocor) 50 mg BID PO Last administered on 02/01/20at 08:26; Start 02/01/20 at 09:00 Active Scripts Active Reported Flecainide Acetate 100 Mg Tablet 50 Mg PO BID Eliquis (Apixaban) 5 Mg Tablet 5 Mg PO BID Metoprolol Tartrate 25 Mg Tablet 12.5 Mg PO PRN DAILY PRN Testosterone Cypionate 200 Mg/1 Ml Vial 1 Ml IM Q2WKS Levothyroxine Sodium 175 Mcg Tablet 1 Tab PO DAILY ALLERGIES Allergies: Coded Allergies: morphine (Verified Allergy, Severe, Anaphylaxis, 01/31/20) Sulfa (Sulfonamide Antibiotics) (Verified Allergy, Intermediate, 01/31/20) ROS Review of Systems 14 point ROS conducted with pertinent positives noted above in HPI PHYSICAL EXAM General: Alert, Oriented X3, Cooperative, No acute distress HEENT: Atraumatic, Mucous membr. moist/pink Lungs: Clear to auscultation Heart: Regular rate Abdomen: Soft, No tenderness Extremities: No edema, Normal pulses Skin: No breakdown Neuro: Normal speech, Sensation intact Psych/Mental Status: Mental status NL, Mood NL MUSCULOSKELETAL: No deformity VITALS Vital Signs Vital Signs Date Time Temp Pulse Resp B/P (MAP) Pulse Ox O2 Delivery O2 Flow Rate FiO2 02/01/20 08:26 68 129/93 02/01/20 08:18 98.3 16 95 Room Air LABS LABS Laboratory Tests Test 01/31/20 17:40 01/31/20 17:51 02/01/20 05:57 White Blood Count 8.6 x10^3/uL (4.0-11.0) 6.3 x10^3/uL (4.0-11.0) Red Blood Count 5.42 x10^6/uL (4.30-5.70) 5.35 x10^6/uL (4.30-5.70) Hemoglobin 16.8 g/dL (13.0-17.5) 16.4 g/dL (13.0-17.5) Hematocrit 49.2 % (39.0-53.0) 49.1 % (39.0-53.0) Mean Corpuscular Volume 91 fL (79-100) 92 fL (79-100) Mean Corpuscular Hemoglobin 31 pg (25-35) 31 pg (25-35) Mean Corpuscular Hemoglobin Concent 34 g/dL (31-37) 33 g/dL (31-37) Red Cell Distribution Width 13.2 % (11.5-14.5) 13.2 % (11.5-14.5) Platelet Count 194 x10^3/uL (140-400) 173 x10^3/uL (140-400) Neutrophils (%) (Auto) 51 % (31-73) 48 % (31-73) Lymphocytes (%) (Auto) 34 % (24-48) 35 % (24-48) Monocytes (%) (Auto) 9 % (0-9) 11 % (0-9) Eosinophils (%) (Auto) 5 % (0-3) 6 % (0-3) Basophils (%) (Auto) 1 % (0-3) 1 % (0-3) Neutrophils # (Auto) 4.4 x10^3uL (1.8-7.7) 3.0 x10^3uL (1.8-7.7) Lymphocytes # (Auto) 2.9 x10^3/uL (1.0-4.8) 2.2 x10^3/uL (1.0-4.8) Monocytes # (Auto) 0.8 x10^3/uL (0.0-1.1) 0.7 x10^3/uL (0.0-1.1) Eosinophils # (Auto) 0.4 x10^3/uL (0.0-0.7) 0.4 x10^3/uL (0.0-0.7) Basophils # (Auto) 0.1 x10^3/uL (0.0-0.2) 0.0 x10^3/uL (0.0-0.2) Prothrombin Time 10.0 SEC (9.4-11.4) Prothromb Time International Ratio 1.0 (0.9-1.1) Activated Partial Thromboplast Time 24 SEC (23-33) D-Dimer (Solange) 0.19 mg/L (0.00-0.50) Sodium Level 139 mmol/L (136-145) 140 mmol/L (136-145) Potassium Level 3.7 mmol/L (3.5-5.1) 4.0 mmol/L (3.5-5.1) Chloride Level 103 mmol/L (98-107) 105 mmol/L (98-107) Carbon Dioxide Level 27 mmol/L (21-32) 24 mmol/L (21-32) Anion Gap 9 (6-14) 11 (6-14) Blood Urea Nitrogen 14 mg/dL (8-26) 12 mg/dL (8-26) Creatinine 1.4 mg/dL (0.7-1.3) 1.3 mg/dL (0.7-1.3) Estimated GFR (Cockcroft-Gault) 54.8 59.7 Glucose Level 119 mg/dL (70-99) 91 mg/dL (70-99) Calcium Level 9.3 mg/dL (8.5-10.1) 8.7 mg/dL (8.5-10.1) Magnesium Level 2.0 mg/dL (1.8-2.4) Total Bilirubin 0.4 mg/dL (0.2-1.0) Direct Bilirubin 0.1 mg/dL (0.0-0.2) Aspartate Amino Transf (AST/SGOT) 22 U/L (15-37) Alanine Aminotransferase (ALT/SGPT) 55 U/L (16-63) Alkaline Phosphatase 76 U/L (46-116) Creatine Kinase 341 U/L (39-308) Troponin I Quantitative < 0.017 ng/mL (0-0.055) DG-Gwq-M-Type Natriuretic Peptide 6 pg/mL (0-124) Total Protein 7.2 g/dL (6.4-8.2) Albumin 4.0 g/dL (3.4-5.0) Lipase 152 U/L (73-393) Urine Collection Type Unknown Urine Color Yellow Urine Clarity Clear Urine pH 7.0 Urine Specific [place] 1.020 Urine Protein Neg (NEG-TRACE) Urine Glucose (UA) Neg mg/dL (NEG) Urine Ketones (Stick) Neg mg/dL (NEG) Urine Blood Neg (NEG) Urine Nitrite Neg (NEG) Urine Bilirubin Neg (NEG) Urine Urobilinogen Dipstick 0.2 mg/dL (0.2 mg/dL) Urine Leukocyte Esterase Neg (NEG) Urine RBC 0 /HPF (0-2) Urine WBC 0 /HPF (0-4) Urine Squamous Epithelial Cells None /LPF Urine Bacteria 0 /HPF (0-FEW) Urine Opiates Screen Neg (NEG) Urine Methadone Screen Neg (NEG) Urine Barbiturates Neg (NEG) Urine Phencyclidine Screen Neg (NEG) Urine Amphetamine/Methamphetamine Neg (NEG) Urine Benzodiazepines Screen Neg (NEG) Urine Cocaine Screen Neg (NEG) Urine Cannabinoids Screen Neg (NEG) Urine Ethyl Alcohol Neg (NEG) STRESS TEST Stress Test Conclusion 1. No evidence of EKG changes with stress testing. 2. Normal perfusion at stress/rest. 3. Low risk study. 4. EF > 60%. DATE: 12/30/19 1132 ASSESSMENT/PLAN Assessment/Plan 1. Chest pain, palpitations; initial trop negative 2. PAFIB; presenting with RVR; on metoprolol, flecainide for rhythm/rate control at home. On Eliquis for stroke prophylaxis. Recent echo with preserved LV systolic function and MPI without evidence of ischemia 3. Hyperlipidemia; LDL 104 4. Hypothyroidism; TSH recently WNL. Recommendations Continue flecainide for rhythm maintenance Eliquis for stroke prophylaxis. Outpatient referral for EP evaluation for possible ablation therapy; patient has appoint tomorrow in our clinic at 11:15am Okay to discharge from our standpoint . IVORY HENAO MD 02/02/20 0834: CARDIAC CONSULT ASSESSMENT/PLAN Assessment/Plan Patient seen and examined 02/01/20. Agree with BARREL DEDENTING MACHINE OPERATOR's assessment and plan. Patient with history of PAF continuing to have paroxysms of AF with RVR despite being on anti-arrhythmic therapy Agree with outpatient EP referral for possible ablation therapy CP atypical, CT ruled out, Recent echo showed normal LVF and MPI did not show any ischemia Continue eliquis for stroke prophylaxis Thank you for your consultation TREI CROWE APRN Feb 01, 2020 09:00 IVORY HENAO MD Feb 02, 2020 08:34
[2020-02-01] MEDS ORDERED: METOPROLOL TART IMMED RELEASE 25 MG TABLET. PO PRN (09:15)
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
[2020-02-01 11:25] VITALS: BP 127/83
--- NOTE | 2020-02-01 12:24 | NUR ---
pt dc to home. PT is able to verbalize understanding of poc. PT left amb via private vehicle. Ratna PERERA
[2020-02-01] MEDS ORDERED: APIXABAN 5 MG TABLET. PO SCH (21:00)
[2020-02-15] MEDS ORDERED: NON FORMULARY ITEM (Testosterone Cypionate 1 ML) IM SCH (09:00)
== END 2020-02-01 11:45 | disposition home or self-care (01) | DRG 392 ==
LOC: ER 17:26 → ICU 23:12
PROVIDERS: ADMIT Family Medicine; ATTEND Family Medicine
DX: K21.9 Gastro-esophageal reflux disease without esophagitis (principal); I48.0 Paroxysmal atrial fibrillation; E03.9 Hypothyroidism, unspecified; I10 Essential (primary) hypertension; E78.5 Hyperlipidemia, unspecified; I49.3 Ventricular premature depolarization; E78.00 Pure hypercholesterolemia, unspecified; Z87.442 Personal history of urinary calculi; Z82.49 Family history of ischemic heart disease and other diseases of the circulatory system; Z79.01 Long term (current) use of anticoagulants; Z88.5 Allergy status to narcotic agent; Z88.2 Allergy status to sulfonamides
CPT/HCPCS: 36415; 71045; 80048; 80076; 80307; 81001; 82550; 83690; 83735; 83880; 84443; 84484; 85025; 85379; 85610; 85730; 90471; 93005; 96361; 96374; J3490; J7120; 90686; 99285-25

== ENCOUNTER 2020-12-19 12:44 | Emergency (ER) | payer BC ==
[~2020-12-19] VITALS: Ht 180.3 cm; Wt 107.3 kg
[~2020-12-19 12:44] MED LIST changes: +APIX5TAB3 PO; +FLEC100T PO
--- NOTE | 2020-12-19 13:12 | RAD ---
AP chest. HISTORY: Palpitations AP view was taken of the chest. Lungs are clear. Heart is normal in size. There is no effusion. IMPRESSION: 1. No acute chest disease. Electronically signed by: Micah Ga MD (12/19/2020 1:09 PM) [facility]
[2020-12-19 13:37] LABS: BASO % 1 % (0-3); EOS # 0.2 x10^3/uL (0.0-0.7); EOS % 3 % (0-3); HEMATOCRIT 46.4 % (39.0-53.0); LYMPH # 1.5 x10^3/uL (1.0-4.8); LYMPH % 26 % (24-48); MEAN CORPUSCULAR HEMOGLOBIN 32 pg (25-35); MEAN CORPUSCULAR HGB CONC 35 g/dL (31-37); MEAN CORPUSCULAR VOLUME 92 fL (79-100); MONO # 0.5 x10^3/uL (0.0-1.1); MONO % 8 % (0-9); NEUT # 3.7 x10^3uL (1.8-7.7); NEUT % 63 % (31-73); PLATELET COUNT 186 x10^3/uL (140-400); RED BLOOD COUNT 5.06 x10^6/uL (4.30-5.70); RED CELL DISTRIBUTION WIDTH 12.8 % (11.5-14.5); WHITE BLOOD COUNT 5.9 x10^3/uL (4.0-11.0)
--- NOTE | 2020-12-19 13:38 | EKG ---
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
[2020-12-19 13:39] LABS: CALCIUM 8.4 mg/dL (8.5-10.1); CREATININE 1.2 mg/dL (0.7-1.3); GFR 65.2; POTASSIUM 3.7 mmol/L (3.5-5.1)
[2020-12-19 13:45] LABS: ALBUMIN 4.1 g/dL (3.4-5.0); ALBUMIN/GLOBULIN RATIO 1.6 (1.0-1.7); TOTAL BILIRUBIN 0.7 mg/dL (0.2-1.0); TOTAL PROTEIN 6.6 g/dL (6.4-8.2)
--- NOTE | 2020-12-19 14:02 | PHYS DOC ---
Past History Past Medical History: A-Fib, High Cholesterol, Hypothyroid Additional Past Medical Histor: low testosterone (KATTY CARTER APRN) Past Surgical History: Cholecystectomy Additional Past Surgical Histo: SKULL SX , ablation (KATTY CARTER APRN) Alcohol Use: Occasionally Drug Use: None (KATTY CARTER APRN) General Adult EDM: Chief Complaint: Palpitations HPI: HPI: Patient is a 45-year-old male who presents with heart palpitations. Patient states "I was eating lunch when I noticed that my heart felt like it was fluttering and I felt dizzy". Patient states he had an ablation for A. fib in January and has not had any issues since. Denying chest pain, shortness of breath. Denies nausea/vomiting. Denies recent illness. Patient states "I feel really tired". Patient also has history of hypothyroidism. (KATTY CARTER APRN) Review of Systems: Review of Systems: Constitutional: Denies fever or chills Eyes: Denies change in visual acuity HENT: Denies nasal congestion or sore throat Respiratory: Denies cough or shortness of breath Cardiovascular: Denies chest pain or edema GI: Denies abdominal pain, nausea, vomiting, bloody stools or diarrhea : Denies dysuria Musculoskeletal: Denies back pain or joint pain Integument: Denies rash Neurologic: Denies headache, focal weakness or sensory changes Endocrine: Denies polyuria or polydipsia Lymphatic: Denies swollen glands Psychiatric: Denies depression or anxiety (KATTY CARTER APRN) Allergies: Allergies: Allergies Coded Allergies Type Severity Reaction Last Updated Verified morphine Allergy Severe Anaphylaxis 12/19/20 Yes Sulfa (Sulfonamide Antibiotics) Allergy Intermediate 12/19/20 Yes (KATTY CARTER APRN) Physical Exam: PE: Constitutional: Well developed, well nourished, no acute distress, non-toxic appearance. [] HENT: Normocephalic, atraumatic, bilateral external ears normal, oropharynx moist, no oral exudates, nose normal. [] Eyes: PERRLA, EOMI, conjunctiva normal, no discharge. [] Neck: Normal range of motion, no tenderness, supple, no stridor. [] Cardiovascular:Heart rate regular rhythm, no murmur [] Lungs & Thorax: Bilateral breath sounds clear to auscultation [] Abdomen: Bowel sounds normal, soft, no tenderness, no masses, no pulsatile masses. [] Skin: Warm, dry, no erythema, no rash. [] Back: No tenderness, no CVA tenderness. [] Extremities: No tenderness, no cyanosis, no clubbing, ROM intact, no edema. [] Neurologic: Alert and oriented X 3, normal motor function, normal sensory function, no focal deficits noted. [] Psychologic: Affect normal, judgement normal, mood normal. [] (KATTY CARTER APRN) Current Patient Data: Labs: Laboratory Tests Test 12/19/20 13:10 White Blood Count 5.9 x10^3/uL (4.0-11.0) Red Blood Count 5.06 x10^6/uL (4.30-5.70) Hemoglobin 16.0 g/dL (13.0-17.5) Hematocrit 46.4 % (39.0-53.0) Mean Corpuscular Volume 92 fL (79-100) Mean Corpuscular Hemoglobin 32 pg (25-35) Mean Corpuscular Hemoglobin Concent 35 g/dL (31-37) Red Cell Distribution Width 12.8 % (11.5-14.5) Platelet Count 186 x10^3/uL (140-400) Neutrophils (%) (Auto) 63 % (31-73) Lymphocytes (%) (Auto) 26 % (24-48) Monocytes (%) (Auto) 8 % (0-9) Eosinophils (%) (Auto) 3 % (0-3) Basophils (%) (Auto) 1 % (0-3) Neutrophils # (Auto) 3.7 x10^3uL (1.8-7.7) Lymphocytes # (Auto) 1.5 x10^3/uL (1.0-4.8) Monocytes # (Auto) 0.5 x10^3/uL (0.0-1.1) Eosinophils # (Auto) 0.2 x10^3/uL (0.0-0.7) Basophils # (Auto) 0.0 x10^3/uL (0.0-0.2) Sodium Level 139 mmol/L (136-145) Potassium Level 3.7 mmol/L (3.5-5.1) Chloride Level 103 mmol/L (98-107) Carbon Dioxide Level 25 mmol/L (21-32) Anion Gap 11 (6-14) Blood Urea Nitrogen 14 mg/dL (8-26) Creatinine 1.2 mg/dL (0.7-1.3) Estimated GFR (Cockcroft-Gault) 65.2 BUN/Creatinine Ratio 12 (6-20) Glucose Level 234 mg/dL (70-99) H Calcium Level 8.4 mg/dL (8.5-10.1) L Total Bilirubin 0.7 mg/dL (0.2-1.0) Aspartate Amino Transferase (AST) 32 U/L (15-37) Alanine Aminotransferase (ALT) 57 U/L (16-63) Alkaline Phosphatase 78 U/L (46-116) Troponin I Quantitative < 0.017 ng/mL (0-0.055) Total Protein 6.6 g/dL (6.4-8.2) Albumin 4.1 g/dL (3.4-5.0) Albumin/Globulin Ratio 1.6 (1.0-1.7) Vital Signs: Vital Signs Date Time Temp Pulse Resp B/P (MAP) Pulse Ox O2 Delivery O2 Flow Rate FiO2 12/19/20 13:46 88 18 119/74 (89) 95 Room Air 12/19/20 12:47 97.4 (KATTY CARTER APRN) EKG: EKG: [] Sinus rhythm. Heart rate [address] elevation or depression. Read by Dr. Skelton [id number]. (KATTY CARTER APRN) Radiology/Procedures: Radiology/Procedures: []AP chest. HISTORY: Palpitations AP view was taken of the chest. Lungs are clear. Heart is normal in size. There is no effusion. IMPRESSION: 1. No acute chest disease. Electronically signed by: Micah Ga MD (12/19/2020 1:09 PM) [facility] (KATTY CARTER APRN) Heart Score: C/O Chest Pain: No Risk Factors: Risk Factors: DM, Current or recent (<one month) smoker, HTN, HLP, family history of CAD, obesity. Risk Scores: Score 0 - 3: 2.5% MACE over next 6 weeks - Discharge Home Score 4 - 6: 20.3% MACE over next 6 weeks - Admit for Clinical Observation Score 7 - 10: 72.7% MACE over next 6 weeks - Early Invasive Strategies (KATTY CARTER APRN) Course & Med Decision Making: Course & Med Decision Making Pertinent Labs and Imaging studies reviewed. (See chart for details) [] 45 male presents with heart palpitations. Patient states he was eating lunch when he felt like his heart was fluttering. Patient has history of A. fib and had an ablation done and January. Patient denies any symptoms since ablation. Patient denies chest pain or shortness of breath. EKG shows sinus rhythm, heart rate 89 bpm. Patient states his symptoms have improved since arriving at the ED but does feel little weak. CBC, CMP, troponin ordered to rule out any acute abnormalities. Patient states that all of his symptoms have resolved. All labs unremarkable. Troponins negative. Discussed results with patient. Advised patient to follow- up with PCP for further management and possible referral for cardiology. Patient states he does have an upcoming appointment with cardiology next week. Patient given strict return precautions . patient is hemodynamically stable upon disposition. (KATTY CARTER APRN) Course & Med Decision Making I was the Attending physician on the above date of service of this patient. This patient was evaluated, examined, treated, and dispositioned from the emergency department by the mid-level practitioner. Although I was working at the time , no assistance was requested. Electronically signed, Rayo Skelton DO (RAYO SKELTON DO) Mireya Disclaimer: Mireya Disclaimer: This electronic medical record was generated, in whole or in part, using a voice recognition dictation system. (KATTY CARTER APRN) Departure Departure: Impression: Primary Impression: Palpitation Disposition: 01 HOME / SELF CARE / HOMELESS Condition: STABLE Referrals: ELLA GALLEGO MD (PCP) Patient Instructions: Palpitations, [id number] Additional Instructions: You were seen in the emergency room for heart palpitations. All of your labs were unremarkable. Please call your PCP and make a follow-up appointment. Make sure you keep your appointment you have scheduled with cardiology for next week . Return to the emergency room if you have worsening symptoms or concerns. EMERGENCY DEPARTMENT GENERAL DISCHARGE INSTRUCTIONS Thank you for coming to [facility] (ED) today and trusting us with you care. We trust that you had a positivie experience in our Emergency Department. If you wish to speak to the department management, you may call the director at [phone]. YOUR FOLLOW UP INSTRUCTIONS ARE FOLLOWS: 1. Do you have a private Doctor? If you do not have a private doctor, please ask for a resource list of physicians or clinics that may be able to assist you with follow up care. 2. The Emergency Physician has interpreted your x-rays. The X-Ray specialist will also review them. If there is a change in the findings, you will be notified in 48 hours when at all possible. 3. A lab test or culture has been done, your results will be reviewed and you will be notified if you need a change in treatment. ADDITIONAL INSTRUCTIONS AND INFORMATION: 1. Your care today has been supervised by a physician who is specially trained in emergency care. Many problems require more than one evaluation for a complete diagnosis and treatment. We recommend that you schedule your follow up appointment as recommended to ensure complete treatment of you illness or injury. If you are unable to obtain follow up care and continue to have a problem, or if your condition worsens, we recommend that you return to the ED. 2. We are not able to safely determine your condition over the phone nor are we able to give sound medical advice over the phone. For these safety reasons, if you call for medical advice we will ask you to come to the ED for further evaluation. 3. If you have any questions regarding these discharge instructions please call the ED at [phone]. SAFETY INFORMATION: In the interest of safety, wellness, and injury prevention; we encourage you to wear your sealbelt, if you smoke; quite smoking, and we encourage family to use a protective helmet for bicycling and other sporting events that present an increased risk for head injury. IF YOUR SYMPTOMS WORSEN OR NEW SYMPTOMS DEVELOP, OR YOU HAVE CONCERNS ABOUT YOUR CONDITION; OR IF YOUR CONDITION WORSENS WHILE YOU ARE WAITING FOR YOUR FOLLOW UP APPOINTMENT; EITHER CONTACT YOUR PRIMARY CARE DOCTOR, THE PHYSICIAN WHOSE NAME AND NUMBER YOU WERE GIVEN, OR RETURN TO THE ED IMMEDIATELY. KATTY CARTER APRN Dec 19, 2020 14:02 RAYO SKELTON DO Dec 20, 2020 13:09
[2020-12-19 14:57] VITALS: BP 107/70
--- NOTE | 2020-12-19 15:18 | EKG ---
[address] [address] Test Date: 2020-12-19 Test Time: 15:04:52 Pat Name: ROSY SULTANA Department: Room: Gender: M Pantographer: RENEE : 1975 Requested By: RAYO SKELTON Order Number: [id number] Reading MD: Measurements Intervals [place] Rate: 78 P: 42 AL: 168 QRS: 35 QRSD: 88 T: 27 QT: 350 QTc: 402 Interpretive Statements SINUS RHYTHM OTHERWISE NORMAL ECG RI6.02 No previous ECG available for comparison
== END 2020-12-19 17:00 | disposition home or self-care (01) ==
LOC: ER 12:44
DX: R00.2 Palpitations (principal); R42 Dizziness and giddiness; I48.91 Unspecified atrial fibrillation; E78.00 Pure hypercholesterolemia, unspecified; E03.9 Hypothyroidism, unspecified; Z88.5 Allergy status to narcotic agent; Z88.2 Allergy status to sulfonamides
CPT/HCPCS: 36415; 71045; 80053; 84484; 85025; 93005; 99285